=== PATIENT | female | born 1975 | race Caucasian/White ===

== ENCOUNTER 2016-05-17 18:43 | Emergency (ER) | payer MEDICAID ==
[2016-05-17] MEDS ORDERED: DIPHENHYDRAMINE HCL IV 50 MG/ML VIAL IVP ONE (19:17)
[2016-05-17] MEDS ORDERED: KETOROLAC 30 MG/ML VIAL IVP ONE (19:17)
[2016-05-17] MEDS ORDERED: METOCLOPRAMIDE HCL 10 MG/2 ML VIAL IVP ONE (19:17)
--- NOTE | 2016-05-17 19:21 | Emergency Department Record ---
History of Present Illness - General Stated Complaint: KIDD Time Seen by Provider: 05/17/16 19:16 Source: Patient Mode of Arrival: Ambulatory Limitations: No limitations - History of Present Illness Initial Comments: 40 yo female presents to ED with a CC of headache symptoms for the past 4-5 days. Patient reports that she has been taking her abortive therapy as directed , but has been unable to relieve her headache completely. Patient denies fevers , chills, or neck pain symptoms. Patient does report history of migraines, gastric bypass previously. MD Complaint: Headache Onset/Timin -: Days(s) Onset Description: Gradual Location: Diffuse Severity: Severe Quality: Throbbing, Similar to previous headaches Consistency: Constant Improves With: Medication Worsens With: None Treatments Prior to Arrival: Migraine medication - Related Data Home Medications Medication Instructions Recorded Confirmed Last Taken Naratriptan HCl [Amerge] 2.5 mg PO ASDIR PRN 09/03/14 05/17/16 1 Day Ago Cyanocobalamin (Vitamin B-12) 1 ml SQ WEEKLY 05/23/15 05/17/16 1 Day Ago [Vitamin B-12] Clonazepam [Klonopin] 1 mg PO BID 08/11/15 05/17/16 1 Day Ago Alprazolam [Xanax] 1 mg PO ASDIR tab 02/27/16 05/17/16 Unknown Dextroamphetamine/Amphetamine 20 mg PO DAILY tab 02/27/16 05/17/16 Unknown [Adderall] Nortriptyline HCl [Pamelor] 20 mg PO QHS 05/17/16 05/17/16 Unknown Trazodone HCl [Desyrel] 25 - 200 mg PO QHS 05/17/16 05/17/16 Unknown Previous Rx's Medication Instructions Recorded Butalb/Acetaminophen/Caffeine 1 each PO Q4H PRN #6 capsule 05/17/16 [Fioricet 50-300-40 mg Capsule] Allergies Allergy/AdvReac Type Severity Reaction Status Date / Time codeine Allergy NAUSEA AND Verified 05/17/16 19:37 VOMITING Latex, Natural Rubber Allergy RASH Verified 05/17/16 19:37 sumatriptan [From Imitrex] Allergy DIFFICULTY Verified 05/17/16 19:37 SWALLOWING sumatriptan succinate Allergy DIFFICULTY Verified 05/17/16 19:37 [From Imitrex] SWALLOWING tramadol Allergy HIVES Verified 05/17/16 19:37 Review of Systems Constitutional: Denies: Chills, Fever, Malaise, Night sweats Eyes: Reports: Photophobia. Denies: Eye discharge, Eye pain ENT: Denies: Congestion, Ear pain, Epistaxis Respiratory: Denies: Cough, Dyspnea Cardiovascular: Denies: Chest pain, Dyspnea on exertion Endocrine: Denies: Fatigue, Heat or cold intolerance Gastrointestinal: Denies: Abdominal pain, Nausea, Vomiting Genitourinary: Denies: Frequency, Hematuria, Incontinence, Retention Musculoskeletal: Denies: Arthralgia, Back pain, Gout, Joint swelling Skin: Denies: Bruising, Change in color Neurological: Reports: Headache. Denies: Abnormal gait, Confusion, Numbness, Tingling Psychiatric: Denies: Anxiety Hematological/Lymphatic: Denies: Anemia, Blood Clots Past Medical History - SOCIAL HISTORY Smoking Status: Former smoker Drug Use: None - RESPIRATORY Hx Respiratory Disorders: Yes Hx Asthma: Yes (hx) - CARDIOVASCULAR Hx Cardio Disorders: No - NEURO Hx Neuro Disorders: Yes Hx Headaches: Yes (for 11 years) Comment:: Increased CSF pressure - GI Hx GI Disorders: No - Hx Genitourinary Disorders: No - ENDOCRINE Hx Endocrine Disorders: No - MUSCULOSKELETAL Hx Musculoskeletal Disorders: No - PSYCH Hx Psych Problems: Yes Hx Anxiety: Yes Hx Depression: Yes - HEMATOLOGY/ONCOLOGY Hx Hematology/Oncology Disorders: Yes Hx Anemia: Yes Hx Blood Transfusions: No Comment:: also b12 deficient Family Medical History Family Hx Comment (NOT TO BE USED IN PLACE OF ITEMS BELOW): denies Physical Exam - General General Appearance: Alert, Oriented x3, Cooperative, Moderate distress Limitations: No limitations - Head Head exam: Atraumatic, Normocephalic, Normal inspection Head exam detail: negative: Abrasion, Contusion, Haas's sign, General tenderness, Hematoma, Laceration - Eye Eye exam: Normal appearance. negative: Conjunctival injection, Periorbital swelling, Periorbital tenderness, Scleral icterus - ENT Ear exam: negative: Auricular hematoma, Auricular trauma Nasal Exam: negative: Active bleeding, Discharge, Dried blood, Foreign body Mouth exam: negative: Drooling, Laceration, Muffled voice, Tongue elevation - Neck Neck exam: Normal inspection. negative: Meningismus, Tenderness - Respiratory Respiratory exam: Normal lung sounds bilaterally. negative: Respiratory distress, Rhonchi, Stridor, Wheezes - Cardiovascular Cardiovascular Exam: Regular rate, Normal rhythm, Normal heart sounds - GI/Abdominal GI/Abdominal exam: Soft. negative: Pulsatile mass, Rebound, Rigid, Tenderness - Rectal Rectal exam: Deferred - exam: Deferred - Extremities Extremities exam: Normal inspection. negative: Pedal edema, Tenderness - Back Back exam: Denies: CVA tenderness (R), CVA tenderness (L) - Neurological Neurological exam: Alert, Normal gait, Oriented X3 - Psychiatric Psychiatric exam: Normal affect, Normal mood - Skin Skin exam: Normal color. negative: Abrasion Type of lesion: negative: abrasion Course - Reevaluation(s) Reevaluation #1: 05/17/16 20:55 Patient reassessed, reports that her pain symptoms are greatly improved. Patient appears stable for discharge at this time. Disposition Disposition: Discharge Clinical Impression: Headache Qualifiers: Headache type: unspecified Headache chronicity pattern: acute headache Intractability: not intractable Qualified Code(s): R51 - Headache Disposition: Home, Self-Care Condition: (2) Stable Instructions: Acute Headache (ED) Additional Instructions: Return to ED if your symptoms worsen or if you have any concerns. Follow-up with your family doctor in 3-5 days as directed. Prescriptions: Butalb/Acetaminophen/Caffeine [Fioricet 50-300-40 mg Capsule] 1 each PO Q4H PRN #6 capsule PRN Reason: Headache Forms: Patient Portal Access Time of Disposition: 20:56
[2016-05-17] MEDS ORDERED: 0.9 % SODIUM CHLORIDE 1000ML 1,000 ML IV SCH (19:30)
== END 2016-05-17 21:20 | disposition home or self-care (01) ==
LOC: ER 18:43
DX: R51 Headache (principal); H53.149 Visual discomfort, unspecified
CPT/HCPCS: 99284 ×2; 96374; 96375; 96361; J1885; J1200; J2765; J7030

== ENCOUNTER 2016-05-19 19:17 | Emergency (ER) | payer MEDICAID ==
[2016-05-19] MEDS: 0.9 % SODIUM CHLORIDE 1,000 ML BAG IV ONE (20:39)
[2016-05-19] MEDS: METOCLOPRAMIDE HCL 10 MG/2 ML VIAL IVP ONE (20:39)
[2016-05-19] MEDS: KETOROLAC 30 MG/ML VIAL IVP ONE (20:40)
[2016-05-19] MEDS: DIPHENHYDRAMINE HCL IV 50 MG/ML VIAL IVP ONE (20:42)
[2016-05-19] MEDS: NALBUPHINE HCL 20 MG/ML AMPULE IM ONE (21:47)
--- NOTE | 2016-05-19 22:18 | Emergency Department Record ---
History of Present Illness - General Chief Complaint: Headache Migraine Stated Complaint: HEADACHE Time Seen by Provider: 05/19/16 20:04 Source: Patient Mode of Arrival: Ambulatory Limitations: No limitations - History of Present Illness Initial Comments: pt has had a migraine all week. pt states she saw dr ford and was better then got worse again.she is out of her fioricet. she states she has a hx of pseudotumor cerebri though she states dr forde didnt think so. she says this headache is worse and lasting longer then usual. it is in the same place as her migraines and does feel like her migraines. she has nausea MD Complaint: "Migraine" Onset/Timin -: Days(s) Onset Description: Gradual Location: Frontal Severity scale (1-10): 9 Quality: Full, Similar to previous headaches Consistency: Constant Improves With: Medication Worsens With: Noise Treatments Prior to Arrival: Migraine medication - Related Data Home Medications Medication Instructions Recorded Confirmed Last Taken Naratriptan HCl [Amerge] 2.5 mg PO ASDIR PRN 09/03/14 05/19/16 05/19/16 Cyanocobalamin (Vitamin B-12) 1 ml SQ WEEKLY 05/23/15 05/19/16 1 Day Ago [Vitamin B-12] Clonazepam [Klonopin] 1 mg PO BID 08/11/15 05/19/16 05/19/16 Alprazolam [Xanax] 1 mg PO ASDIR tab 02/27/16 05/19/16 Unknown Dextroamphetamine/Amphetamine 20 mg PO DAILY tab 02/27/16 05/19/16 Unknown [Adderall] Nortriptyline HCl [Pamelor] 20 mg PO QHS 05/17/16 05/19/16 05/18/16 Trazodone HCl [Desyrel] 25 - 200 mg PO QHS 05/17/16 05/19/16 05/18/16 Previous Rx's Medication Instructions Recorded Butalb/Acetaminophen/Caffeine 1 each PO ASDIR #10 capsule 05/19/16 [Fioricet 50-300-40 mg Capsule] Allergies Allergy/AdvReac Type Severity Reaction Status Date / Time codeine Allergy NAUSEA AND Verified 05/17/16 19:37 VOMITING Latex, Natural Rubber Allergy RASH Verified 05/17/16 19:37 sumatriptan [From Imitrex] Allergy DIFFICULTY Verified 05/17/16 19:37 SWALLOWING sumatriptan succinate Allergy DIFFICULTY Verified 05/17/16 19:37 [From Imitrex] SWALLOWING tramadol Allergy HIVES Verified 05/17/16 19:37 Travel Screening - Travel/Exposure Within Last 30 Days Have you traveled within the last 30 days?: No - Travel Symptoms Symptom Screening: None Review of Systems Reviewed: No additional complaints except as noted below Constitutional: Reports: As per HPI. Denies: Chills, Fever, Malaise, Night sweats, Weakness, Weight change Eyes: Reports: As per HPI. Denies: Eye discharge, Eye pain, Photophobia, Vision change ENT: Reports: As per HPI. Denies: Congestion, Dental pain, Ear pain, Epistaxis , Hearing loss, Throat pain Respiratory: Reports: As per HPI. Denies: Cough, Dyspnea, Hemoptysis, Stridor, Wheezes Cardiovascular: Reports: As per HPI. Denies: Arrhythmia, Chest pain, Dyspnea on exertion, Edema, Murmurs, Orthopnea, Palpitations, Paroxysmal nocturnal dyspnea, Rheumatic Fever, Syncope Endocrine: Reports: As per HPI. Denies: Fatigue, Heat or cold intolerance, Polydipsia, Polyuria Gastrointestinal: Reports: As per HPI. Denies: Abdominal pain, Constipation, Diarrhea, Hematemesis, Hematochezia, Melena, Nausea, Vomiting Genitourinary: Reports: As per HPI. Denies: Abnormal menses, Discharge, Dyspareunia, Dysuria, Frequency, Hematuria, Incontinence, Retention, Urgency Musculoskeletal: Reports: As per HPI. Denies: Arthralgia, Back pain, Gout, Joint swelling, Myalgia, Neck pain Skin: Reports: As per HPI. Denies: Bruising, Change in color, Change in hair/ nails, Lesions, Pruritus, Rash Neurological: Reports: As per HPI. Denies: Abnormal gait, Confusion, Headache, Numbness, Paresthesias, Seizure, Tingling, Tremors, Vertigo, Weakness Psychiatric: Reports: As per HPI. Denies: Anxiety, Auditory hallucinations, Depression, Homicidal thoughts, Suicidal thoughts, Visual hallucinations Hematological/Lymphatic: Reports: As per HPI. Denies: Anemia, Blood Clots, Easy bleeding, Easy bruising, Swollen glands Past Medical History - SOCIAL HISTORY Smoking Status: Former smoker - RESPIRATORY Hx Respiratory Disorders: Yes Hx Asthma: Yes (hx) - CARDIOVASCULAR Hx Cardio Disorders: No - NEURO Hx Neuro Disorders: Yes Hx Headaches: Yes (for 11 years) Comment:: Increased CSF pressure - GI Hx GI Disorders: No - Hx Genitourinary Disorders: No - ENDOCRINE Hx Endocrine Disorders: No - MUSCULOSKELETAL Hx Musculoskeletal Disorders: No - PSYCH Hx Psych Problems: Yes Hx Anxiety: Yes Hx Depression: Yes - HEMATOLOGY/ONCOLOGY Hx Hematology/Oncology Disorders: Yes Hx Anemia: Yes Hx Blood Transfusions: No Comment:: also b12 deficient Family Medical History Any Significant Family History?: Yes Family Hx Comment (NOT TO BE USED IN PLACE OF ITEMS BELOW): mom w/thyroid issues ; dad w/headaches *Cancer Comment: "mom's side" w/breast CA Physical Exam - General General Appearance: Alert, Oriented x3, Cooperative, Mild distress - Head Head exam: Normal inspection - Eye Eye exam: Normal appearance, PERRL, EOMI Pupils: Normal accommodation - ENT ENT exam: Normal exam, Mucous membranes moist, Normal external ear exam, Normal orophraynx Ear exam: Normal external inspection. negative: External canal tenderness Nasal Exam: Normal inspection. negative: Discharge, Sinus tenderness Mouth exam: Normal external inspection, Tongue normal Teeth exam: Normal inspection. negative: Dental caries Throat exam: Normal inspection. negative: Tonsillar erythema, Tonsillar exudate - Neck Neck exam: Normal inspection, Full ROM. negative: Tenderness - Respiratory Respiratory exam: Normal lung sounds bilaterally. negative: Respiratory distress - Cardiovascular Cardiovascular Exam: Regular rate, Normal rhythm, Normal heart sounds - GI/Abdominal GI/Abdominal exam: Soft, Normal bowel sounds. negative: Tenderness - Rectal Rectal exam: Deferred - exam: Deferred - Extremities Extremities exam: Normal inspection, Full ROM, Normal capillary refill. negative: Tenderness - Back Back exam: Reports: Normal inspection, Full ROM. Denies: Muscle spasm, Rash noted, Tenderness - Neurological Neurological exam: Alert, CN II-XII intact, Normal gait, Oriented X3 - Psychiatric Psychiatric exam: Normal affect, Normal mood - Skin Skin exam: Dry, Intact, Normal color, Warm Course Vital Signs 05/19/16 05/19/16 19:37 21:24 Temperature 98.5 F Pulse Rate [ 94 H 78 Pulse Ox Probe] Respiratory 20 16 Rate Blood Pressure 165/101 128/73 [Left Arm] Pulse Ox 100 100 - Reevaluation(s) Reevaluation #1: 05/19/16 22:[address] Disposition Disposition: Discharge Clinical Impression: Migraine Qualifiers: Migraine type: unspecified Status migrainosus presence: with status migrainosus Intractability: intractable Qualified Code(s): G43.911 - Migraine, unspecified, intractable, with status migrainosus Instructions: Migraine Headache (ED) Additional Instructions: follow up with neurologist. return sooner if worse. rest Prescriptions: Butalb/Acetaminophen/Caffeine [Fioricet 50-300-40 mg Capsule] 1 each PO ASDIR # 10 capsule Forms: Patient Portal Access
== END 2016-05-19 22:44 | disposition home or self-care (01) ==
LOC: ER 19:17
DX: G43.911 Migraine, unspecified, intractable, with status migrainosus (principal); R11.0 Nausea
CPT/HCPCS: 99284 ×2; 96374; 96372; 96375; 70450; J1885; J2300; J1200; J2765; J7030

== ENCOUNTER 2016-06-09 16:36 | Emergency (ER) | payer MEDICAID ==
--- NOTE | 2016-06-09 17:26 | Emergency Department Record ---
History of Present Illness - General Chief Complaint: Headache Migraine Stated Complaint: HEADACHE Time Seen by Provider: 06/09/16 17:13 Mode of Arrival: Ambulatory - History of Present Illness Initial Comments: headache started today and she had a lower jaw tooth root canal done which feels better today and she used norco and she said the headache got worse. Complaint: Headache Onset/Timin -: Days(s) Onset Description: Gradual Location: Frontal Severity scale (1-10): 6 Quality: Aching, Similar to previous headaches Consistency: Constant Improves With: Nothing Worsens With: None Associated Symptoms: Nausea, Photophobia, Sensitivity to sound Treatments Prior to Arrival: None - Related Data Home Medications Medication Instructions Recorded Confirmed Last Taken Naratriptan HCl [Amerge] 2.5 mg PO ASDIR PRN 09/03/14 06/09/16 05/19/16 Cyanocobalamin (Vitamin B-12) 1 ml SQ WEEKLY 05/23/15 06/09/16 1 Day Ago [Vitamin B-12] Clonazepam [Klonopin] 1 mg PO BID 08/11/15 06/09/16 05/19/16 Alprazolam [Xanax] 1 mg PO ASDIR tab 02/27/16 06/09/16 Unknown Dextroamphetamine/Amphetamine 20 mg PO DAILY tab 02/27/16 06/09/16 Unknown [Adderall] Nortriptyline HCl [Pamelor] 20 mg PO QHS 05/17/16 06/09/16 05/18/16 Trazodone HCl [Desyrel] 25 - 200 mg PO QHS 05/17/16 06/09/16 05/18/16 Hydrocodone/Acetaminophen 1 tab PO Q6H 06/09/16 06/09/16 Unknown [Hydrocodon-Acetaminophn 10-325] Previous Rx's Medication Instructions Recorded Butalb/Acetaminophen/Caffeine 1 each PO ASDIR #10 capsule 05/19/16 [Fioricet 50-300-40 mg Capsule] Butalb/Acetaminophen/Caffeine 1 each PO Q4H #14 tablet 06/09/16 [Fioricet] Allergies Allergy/AdvReac Type Severity Reaction Status Date / Time codeine Allergy NAUSEA AND Verified 05/17/16 19:37 VOMITING Latex, Natural Rubber Allergy RASH Verified 05/17/16 19:37 sumatriptan [From Imitrex] Allergy DIFFICULTY Verified 05/17/16 19:37 SWALLOWING sumatriptan succinate Allergy DIFFICULTY Verified 05/17/16 19:37 [From Imitrex] SWALLOWING tramadol Allergy HIVES Verified 05/17/16 19:37 Travel Screening - Travel/Exposure Within Last 30 Days Have you traveled within the last 30 days?: No Review of Systems Reviewed: No additional complaints except as noted below Constitutional: Reports: As per HPI. Denies: Chills, Fever, Malaise, Night sweats, Weakness, Weight change Eyes: Reports: As per HPI. Denies: Eye discharge, Eye pain, Photophobia, Vision change ENT: Reports: As per HPI. Denies: Congestion, Dental pain, Ear pain, Epistaxis , Hearing loss, Throat pain Respiratory: Reports: As per HPI. Denies: Cough, Dyspnea, Hemoptysis, Stridor, Wheezes Cardiovascular: Reports: As per HPI. Denies: Arrhythmia, Chest pain, Dyspnea on exertion, Edema, Murmurs, Orthopnea, Palpitations, Paroxysmal nocturnal dyspnea, Rheumatic Fever, Syncope Endocrine: Reports: As per HPI. Denies: Fatigue, Heat or cold intolerance, Polydipsia, Polyuria Gastrointestinal: Reports: As per HPI. Denies: Abdominal pain, Constipation, Diarrhea, Hematemesis, Hematochezia, Melena, Nausea, Vomiting Genitourinary: Reports: As per HPI. Denies: Abnormal menses, Discharge, Dyspareunia, Dysuria, Frequency, Hematuria, Incontinence, Retention, Urgency Musculoskeletal: Reports: As per HPI. Denies: Arthralgia, Back pain, Gout, Joint swelling, Myalgia, Neck pain Skin: Reports: As per HPI. Denies: Bruising, Change in color, Change in hair/ nails, Lesions, Pruritus, Rash Neurological: Reports: As per HPI, Headache. Denies: Abnormal gait, Confusion, Numbness, Paresthesias, Seizure, Tingling, Tremors, Vertigo, Weakness Psychiatric: Reports: As per HPI. Denies: Anxiety, Auditory hallucinations, Depression, Homicidal thoughts, Suicidal thoughts, Visual hallucinations Hematological/Lymphatic: Reports: As per HPI. Denies: Anemia, Blood Clots, Easy bleeding, Easy bruising, Swollen glands Past Medical History - SOCIAL HISTORY Smoking Status: Former smoker - RESPIRATORY Hx Respiratory Disorders: Yes Hx Asthma: Yes (hx) - CARDIOVASCULAR Hx Cardio Disorders: No - NEURO Hx Neuro Disorders: Yes Hx Headaches: Yes (for 11 years) Comment:: Increased CSF pressure - GI Hx GI Disorders: No - Hx Genitourinary Disorders: No - ENDOCRINE Hx Endocrine Disorders: No - MUSCULOSKELETAL Hx Musculoskeletal Disorders: No - PSYCH Hx Psych Problems: Yes Hx Anxiety: Yes Hx Depression: Yes - HEMATOLOGY/ONCOLOGY Hx Hematology/Oncology Disorders: Yes Hx Anemia: Yes Hx Blood Transfusions: No Comment:: also b12 deficient Family Medical History Any Significant Family History?: Yes Family Hx Comment (NOT TO BE USED IN PLACE OF ITEMS BELOW): mom w/thyroid issues ; dad w/headaches *Cancer Comment: "mom's side" w/breast CA Physical Exam - General General Appearance: Alert, Oriented x3, Cooperative, No acute distress - Head Head exam: Normal inspection - Eye Eye exam: Normal appearance, PERRL Pupils: Normal accommodation - ENT ENT exam: Normal exam, Mucous membranes moist, Normal external ear exam, Normal orophraynx, TM's normal bilaterally Ear exam: Normal external inspection. negative: External canal tenderness Nasal Exam: Normal inspection. negative: Discharge, Sinus tenderness Mouth exam: Normal external inspection, Tongue normal Teeth exam: Normal inspection. negative: Dental caries Throat exam: Normal inspection. negative: Tonsillar erythema, Tonsillar exudate - Neck Neck exam: Normal inspection, Full ROM. negative: Tenderness - Respiratory Respiratory exam: Normal lung sounds bilaterally. negative: Respiratory distress - Cardiovascular Cardiovascular Exam: Regular rate, Normal rhythm, Normal heart sounds - GI/Abdominal GI/Abdominal exam: Soft, Normal bowel sounds. negative: Tenderness - Rectal Rectal exam: Deferred - exam: Deferred - Extremities Extremities exam: Normal inspection, Full ROM, Normal capillary refill. negative: Tenderness - Back Back exam: Reports: Normal inspection, Full ROM. Denies: Muscle spasm, Rash noted, Tenderness - Neurological Neurological exam: Alert, Normal gait, Oriented X3, Reflexes normal - Psychiatric Psychiatric exam: Normal affect, Normal mood - Skin Skin exam: Dry, Intact, Normal color, Warm Course Vital Signs 06/09/16 16:53 Temperature 98.6 F Pulse Rate 128 H Respiratory 22 Rate Blood Pressure 149/98 Pulse Ox 98 feeling better Medical Decision Making - Lab Data Result diagrams: 06/09/16 17:50 06/09/16 17:50 Disposition Clinical Impression: Migraine Qualifiers: Migraine type: unspecified Status migrainosus presence: with status migrainosus Intractability: intractable Qualified Code(s): G43.911 - Migraine, unspecified, intractable, with status migrainosus Disposition: Home, Self-Care Condition: (1) Good Instructions: Migraine Headache (ED) Additional Instructions: follow up with family Prescriptions: Butalb/Acetaminophen/Caffeine [Fioricet] 1 each PO Q4H #14 tablet Forms: Patient Portal Access Time of Disposition: 18:38
[2016-06-09] MEDS: PROMETHAZINE HCL 25 MG in 0.9 % SODIUM CHLORIDE 100ML 50 ML IVP ONE (17:51)
[2016-06-09] MEDS: KETOROLAC 30 MG/ML VIAL IVP ONE (17:51)
[2016-06-09] MEDS: DIPHENHYDRAMINE HCL IV 50 MG/ML VIAL IVP ONE (17:51)
[2016-06-09] MEDS: 0.9 % SODIUM CHLORIDE 1,000 ML BAG IV ONE (17:51)
[2016-06-09 18:09] LABS: BASO % 0.5 % (0-6); EOS % 9.3 % (0-6); GRAN % 72.5 % (47-80); HEMATOCRIT 37.6 % (35.0-47.0); LYMPH % 12.9 % (16-45); MEAN CELL VOLUME 97.2 fl (81-97); MEAN CORPUSCULAR HGB CONC 31.9 g/dl (32-36); MEAN PLATELET VOLUME 9.8 fl (7.4-10.4); MONO % 4.8 % (0-9); PLATELET COUNT 223 K/uL (130-400); RED BLOOD COUNT 3.87 M/uL (3.80-5.40); RED CELL DISTRIBUTION WIDTH 12.6 % (11.5-14.5); WHITE BLOOD COUNT W/O DIFF 5.7 K/uL (4.2-12.2)
[2016-06-09 18:22] LABS: ANION GAP 7.4 (7-16); BLOOD UREA NITROGEN 12 mg/dL (7-17); CARBON DIOXIDE 26.6 mmol/L (22-30); CREATININE 0.5 mg/dL (0.52-1.04); EST GLOMERULAR FILTRATION RATE > 60 ml/min; GLUCOSE,RANDOM 103 mg/dL (70-110)
[2016-06-09] MEDS: NALBUPHINE HCL 20 MG/ML AMPULE IVP ONE (18:28)
== END 2016-06-09 19:10 | disposition home or self-care (01) ==
LOC: ER 16:36
DX: G43.911 Migraine, unspecified, intractable, with status migrainosus (principal); R11.0 Nausea
CPT/HCPCS: 80048; 85025; 96374; 96375; 99284; J1200; J1885; J2550; J7030

== ENCOUNTER 2016-08-05 21:56 | Emergency (ER) | payer MEDICAID ==
--- NOTE | 2016-08-05 22:32 | Emergency Department Record ---
History of Present Illness - General Chief Complaint: Headache Migraine Stated Complaint: MIGRAINE Time Seen by Provider: 08/05/16 22:27 Source: Patient Mode of Arrival: Ambulatory Limitations: No limitations - History of Present Illness Initial Comments: 40 yo female presents to ED with a CC ofa "migraine headache" for the past 3 days that has persisted despite abortive therapy from her Neurologist Dr. Evans. Patient reports that she has been taking Eldridge and sumatriptan for her symptoms without improvement in her symptoms. Patient reports nausea without vomiting and photophobia. Patient denies fevers, chills, or neck stiffness symptoms. MD Complaint: Headache Onset/Timin -: Days(s) Onset Description: Gradual Location: Frontal, Other Severity: Severe Severity scale (1-10): 8 Quality: Full, Throbbing, Similar to previous headaches Consistency: Constant Improves With: Medication Worsens With: Exertion/activity, Light, Noise Associated Symptoms: Sensitivity to sound Treatment Prior to Arrival Comment:: migraine medication 08/04/16 - Related Data Home Medications Medication Instructions Recorded Confirmed Last Taken Naratriptan HCl [Amerge] 2.5 mg PO ASDIR PRN 09/03/14 08/05/16 08/04/16 Cyanocobalamin (Vitamin B-12) 1 ml SQ WEEKLY 05/23/15 08/05/16 1 Day Ago [Vitamin B-12] ~09/02/15 Clonazepam [Klonopin] 1 mg PO BID 08/11/15 08/05/16 05/19/16 Alprazolam [Xanax] 1 mg PO ASDIR tab 02/27/16 08/05/16 Unknown Dextroamphetamine/Amphetamine 20 mg PO DAILY tab 02/27/16 08/05/16 Unknown [Adderall] Nortriptyline HCl [Pamelor] 20 mg PO QHS 05/17/16 08/05/16 05/18/16 Trazodone HCl [Desyrel] 25 - 200 mg PO QHS 05/17/16 08/05/16 05/18/16 Hydrocodone/Acetaminophen 1 tab PO Q6H 06/09/16 08/05/16 Unknown [Hydrocodon-Acetaminophn 10-325] Butalb/Acetaminophen/Caffeine 1 each PO ASDIR PRN 08/05/16 08/05/16 08/02/16 [Fioricet 50-300-40 mg Capsule] Verapamil HCl 80 mg PO DAILY 08/05/16 08/05/16 08/05/16 Allergies Allergy/AdvReac Type Severity Reaction Status Date / Time codeine Allergy NAUSEA AND Verified 05/17/16 19:37 VOMITING Latex, Natural Rubber Allergy RASH Verified 05/17/16 19:37 sumatriptan [From Imitrex] Allergy DIFFICULTY Verified 05/17/16 19:37 SWALLOWING sumatriptan succinate Allergy DIFFICULTY Verified 05/17/16 19:37 [From Imitrex] SWALLOWING tramadol Allergy HIVES Verified 05/17/16 19:37 Travel Screening - Travel/Exposure Within Last 30 Days Have you traveled within the last 30 days?: No - Travel Symptoms Symptom Screening: Headache Review of Systems Constitutional: Denies: Chills, Fever, Malaise, Night sweats Eyes: Reports: Photophobia. Denies: Eye discharge, Eye pain ENT: Denies: Congestion, Ear pain, Epistaxis Respiratory: Denies: Cough, Dyspnea Cardiovascular: Denies: Chest pain, Dyspnea on exertion Endocrine: Denies: Fatigue, Heat or cold intolerance Gastrointestinal: Reports: Nausea. Denies: Abdominal pain, Vomiting Genitourinary: Denies: Incontinence, Retention Musculoskeletal: Denies: Arthralgia, Back pain Skin: Denies: Bruising, Change in color Neurological: Reports: Headache. Denies: Abnormal gait, Confusion, Seizure Psychiatric: Denies: Anxiety Hematological/Lymphatic: Denies: Anemia, Blood Clots Past Medical History - SOCIAL HISTORY Smoking Status: Former smoker Alcohol Use: None Drug Use: None - RESPIRATORY Hx Respiratory Disorders: Yes Hx Asthma: Yes (hx) - CARDIOVASCULAR Hx Cardio Disorders: No - NEURO Hx Neuro Disorders: Yes Hx Headaches: Yes (for 11 years) Comment:: Increased CSF pressure - GI Hx GI Disorders: No - Hx Genitourinary Disorders: No - ENDOCRINE Hx Endocrine Disorders: No - MUSCULOSKELETAL Hx Musculoskeletal Disorders: No - PSYCH Hx Psych Problems: Yes Hx Anxiety: Yes Hx Depression: Yes - HEMATOLOGY/ONCOLOGY Hx Hematology/Oncology Disorders: Yes Hx Anemia: Yes Hx Blood Transfusions: No Comment:: also b12 deficient Family Medical History Any Significant Family History?: Yes Family Hx Comment (NOT TO BE USED IN PLACE OF ITEMS BELOW): mom w/thyroid issues ; dad w/headaches *Cancer Comment: "mom's side" w/breast CA Physical Exam - General General Appearance: Alert, Oriented x3, Cooperative, Moderate distress Limitations: No limitations - Head Head exam: Atraumatic, Normocephalic, Normal inspection Head exam detail: negative: Abrasion, Contusion, Haas's sign, General tenderness, Hematoma, Laceration - Eye Eye exam: Normal appearance. negative: Conjunctival injection, Periorbital swelling, Periorbital tenderness, Scleral icterus - ENT Ear exam: negative: Auricular hematoma, Auricular trauma Nasal Exam: negative: Active bleeding, Discharge, Dried blood, Foreign body Mouth exam: negative: Drooling, Laceration, Tongue elevation - Neck Neck exam: Normal inspection. negative: Meningismus, Tenderness - Respiratory Respiratory exam: Normal lung sounds bilaterally. negative: Rales, Respiratory distress, Rhonchi, Stridor - Cardiovascular Cardiovascular Exam: Regular rate, Normal rhythm, Normal heart sounds - GI/Abdominal GI/Abdominal exam: Soft. negative: Rebound, Rigid, Tenderness - Rectal Rectal exam: Deferred - exam: Deferred - Extremities Extremities exam: Normal inspection. negative: Pedal edema, Tenderness - Back Back exam: Denies: CVA tenderness (R), CVA tenderness (L) - Neurological Neurological exam: Alert, Normal gait, Oriented X3 - Psychiatric Psychiatric exam: Normal affect, Normal mood - Skin Skin exam: Normal color. negative: Abrasion Type of lesion: negative: abrasion Course Vital Signs 08/05/16 22:18 Temperature 98.1 F Pulse Rate [ 88 Pulse Ox Probe] Respiratory 18 Rate Blood Pressure 129/89 [Left Arm] Pulse Ox 97 - Reevaluation(s) Reevaluation #1: 08/06/16 00:15 Patient reports that her headache symptoms are improved, and the patient appears stable for discharge at this time. Disposition Disposition: Discharge Clinical Impression: Headache Qualifiers: Headache type: unspecified Headache chronicity pattern: acute headache Intractability: not intractable Qualified Code(s): R51 - Headache Disposition: Home, Self-Care Condition: (2) Stable Instructions: Acute Headache (ED) Additional Instructions: Return to ED if your symptoms worsen or if you have any concerns. Follow-up with Dr. Evans in 3-5 days as directed. Forms: Patient Portal Access Time of Disposition: 22:32
[2016-08-05] MEDS: DIAZEPAM 5 MG/1 ML TUBX IVP ONE (22:54)
[2016-08-05] MEDS: 0.9 % SODIUM CHLORIDE 1000ML 1,000 ML IV SCH (22:54)
[2016-08-05] MEDS: METOCLOPRAMIDE HCL 10 MG/2 ML VIAL IVP ONE (22:55)
[2016-08-05] MEDS: DIPHENHYDRAMINE HCL IV 50 MG/ML VIAL IVP ONE (22:55)
[2016-08-06] MEDS: NALBUPHINE HCL 20 MG/ML AMPULE IM ONE (00:08)
== END 2016-08-06 00:22 | disposition home or self-care (01) ==
LOC: ER 21:56
DX: R51 Headache (principal); R11.2 Nausea with vomiting, unspecified; H53.149 Visual discomfort, unspecified
CPT/HCPCS: 99284 ×2; 96374; 96372; 96375; 96361; J2300; J1200; J2765; J3360; J7030

== ENCOUNTER 2016-09-02 10:06 | Emergency (ER) | payer MEDICAID ==
[2016-09-02] MEDS ORDERED: 0.9 % SODIUM CHLORIDE 1,000 ML BAG IV ONE (10:33)
[2016-09-02] MEDS ORDERED: ONDANSETRON HCL IV 4 MG/2 ML VIAL IVP ONE (10:47)
--- NOTE | 2016-09-02 10:53 | Emergency Department Record ---
History of Present Illness - General Chief complaint: Weakness Stated complaint: SLURRED SPEECH Time Seen by Provider: 09/02/16 10:24 Source: Patient, Family Mode of Arrival: Wheelchair Limitations: No limitations - History of Present Illness Initial comments: pts states pt woke up slurring words and having r sided weakness. last time she was seen with no symptoms was 10 hrs ago. MD Complaint: Difficulty walking, Focal weakness, Tingling Onset/Timin -: Days(s) Location: Generalized Severity: Moderate Consistency: Constant Improves with: None Worsens with: None Associated Symptoms: Denies other symptoms - [place] Coma Scale Eye Response: (4) Open spontaneously Motor Response: (6) Obeys commands Verbal Response: (5) Oriented Anu Total: 15 - Symptoms of Stroke Symptoms of stroke: Slurred Speech, Unsteady When Walking - Related Data Home Medications Medication Instructions Recorded Confirmed Last Taken Naratriptan HCl [Amerge] 2.5 mg PO ASDIR PRN 09/03/14 09/02/16 09/01/16 Cyanocobalamin (Vitamin B-12) 1 ml SQ WEEKLY 05/23/15 09/02/16 09/01/16 [Vitamin B-12] Clonazepam [Klonopin] 1 mg PO BID 08/11/15 09/02/16 09/01/16 Alprazolam [Xanax] 1 mg PO ASDIR tab 02/27/16 09/02/16 09/01/16 Dextroamphetamine/Amphetamine 20 mg PO DAILY tab 02/27/16 09/02/16 09/01/16 [Adderall] Trazodone HCl [Desyrel] 25 - 200 mg PO QHS 05/17/16 09/02/16 09/01/16 Hydrocodone/Acetaminophen 1 tab PO Q6H 06/09/16 09/02/16 09/01/16 [Hydrocodon-Acetaminophn 10-325] Butalb/Acetaminophen/Caffeine 1 each PO ASDIR PRN 08/05/16 09/02/16 09/01/16 [Fioricet 50-300-40 mg Capsule] Verapamil HCl 80 mg PO DAILY 08/05/16 09/02/16 09/01/16 Allergies Allergy/AdvReac Type Severity Reaction Status Date / Time codeine Allergy NAUSEA AND Verified 09/02/16 10:10 VOMITING Latex, Natural Rubber Allergy RASH Verified 09/02/16 10:10 sumatriptan [From Imitrex] Allergy DIFFICULTY Verified 09/02/16 10:10 SWALLOWING sumatriptan succinate Allergy DIFFICULTY Verified 09/02/16 10:10 [From Imitrex] SWALLOWING tramadol Allergy HIVES Verified 09/02/16 10:10 Travel Screening - Travel/Exposure Within Last 30 Days Have you traveled within the last 30 days?: No - Travel/Exposure Within Last Year Have you traveled outside the [place] in the last year?: No - Additonal Travel Details Have you been exposed to anyone with a communicable illness?: No Review of Systems Reviewed: No additional complaints except as noted below Constitutional: Reports: As per HPI. Denies: Chills, Fever, Malaise, Night sweats, Weakness, Weight change Eyes: Reports: As per HPI. Denies: Eye discharge, Eye pain, Photophobia, Vision change ENT: Reports: As per HPI. Denies: Congestion, Dental pain, Ear pain, Epistaxis , Hearing loss, Throat pain Respiratory: Reports: As per HPI. Denies: Cough, Dyspnea, Hemoptysis, Stridor, Wheezes Cardiovascular: Reports: As per HPI. Denies: Arrhythmia, Chest pain, Dyspnea on exertion, Edema, Murmurs, Orthopnea, Palpitations, Paroxysmal nocturnal dyspnea, Rheumatic Fever, Syncope Endocrine: Reports: As per HPI. Denies: Fatigue, Heat or cold intolerance, Polydipsia, Polyuria Gastrointestinal: Reports: As per HPI. Denies: Abdominal pain, Constipation, Diarrhea, Hematemesis, Hematochezia, Melena, Nausea, Vomiting Genitourinary: Reports: As per HPI. Denies: Abnormal menses, Discharge, Dyspareunia, Dysuria, Frequency, Hematuria, Incontinence, Retention, Urgency Musculoskeletal: Reports: As per HPI. Denies: Arthralgia, Back pain, Gout, Joint swelling, Myalgia, Neck pain Skin: Reports: As per HPI. Denies: Bruising, Change in color, Change in hair/ nails, Lesions, Pruritus, Rash Neurological: Reports: As per HPI. Denies: Abnormal gait, Confusion, Headache, Numbness, Paresthesias, Seizure, Tingling, Tremors, Vertigo, Weakness Psychiatric: Reports: As per HPI. Denies: Anxiety, Auditory hallucinations, Depression, Homicidal thoughts, Suicidal thoughts, Visual hallucinations Hematological/Lymphatic: Reports: As per HPI. Denies: Anemia, Blood Clots, Easy bleeding, Easy bruising, Swollen glands Past Medical History - SOCIAL HISTORY Smoking Status: Former smoker - RESPIRATORY Hx Respiratory Disorders: Yes Hx Asthma: Yes (hx) - CARDIOVASCULAR Hx Cardio Disorders: No - NEURO Hx Neuro Disorders: Yes Hx Headaches: Yes (for 11 years) Comment:: Increased CSF pressure - GI Hx GI Disorders: No - Hx Genitourinary Disorders: No - ENDOCRINE Hx Endocrine Disorders: No - MUSCULOSKELETAL Hx Musculoskeletal Disorders: No - PSYCH Hx Psych Problems: Yes Hx Anxiety: Yes Hx Depression: Yes - HEMATOLOGY/ONCOLOGY Hx Hematology/Oncology Disorders: Yes Hx Anemia: Yes Hx Blood Transfusions: No Comment:: also b12 deficient Family Medical History Any Significant Family History?: Yes Family Hx Comment (NOT TO BE USED IN PLACE OF ITEMS BELOW): mom w/thyroid issues ; dad w/headaches Hx Cancer: Mother *Cancer Comment: "mom's side" w/breast CA Physical Exam - General General Appearance: Alert, Oriented x3, Cooperative, Mild distress - Head Head exam: Normal inspection - Eye Eye exam: Normal appearance, PERRL, EOMI Pupils: Normal accommodation - ENT ENT exam: Normal exam, Mucous membranes moist, Normal external ear exam, Normal orophraynx Ear exam: Normal external inspection. negative: External canal tenderness Nasal Exam: Normal inspection. negative: Discharge, Sinus tenderness Mouth exam: Normal external inspection, Tongue normal Teeth exam: Normal inspection. negative: Dental caries Throat exam: Normal inspection. negative: Tonsillar erythema, Tonsillar exudate - Neck Neck exam: Normal inspection, Full ROM. negative: Tenderness - Respiratory Respiratory exam: Normal lung sounds bilaterally. negative: Respiratory distress - Cardiovascular Cardiovascular Exam: Regular rate, Normal rhythm, Normal heart sounds - GI/Abdominal GI/Abdominal exam: Soft, Normal bowel sounds. negative: Tenderness - Rectal Rectal exam: Deferred - exam: Deferred - Extremities Extremities exam: Normal inspection, Full ROM, Normal capillary refill. negative: Tenderness - Back Back exam: Reports: Normal inspection, Full ROM. Denies: Muscle spasm, Rash noted, Tenderness - Neurological Neurological exam: Alert, CN II-XII intact, Oriented X3, Other (inconsistant exam w sporadic degrees of weakness on both sides and intermittant slurring of varying degrees). negative: Normal gait - Psychiatric Psychiatric exam: Normal affect, Normal mood - Skin Skin exam: Dry, Intact, Normal color, Warm Course Vital Signs 09/02/16 10:13 Temperature 97.7 F Pulse Rate 74 Respiratory 16 Rate Blood Pressure 112/70 Pulse Ox 98 - Reevaluation(s) Reevaluation #1: 09/02/16 14:04 pts symptoms resolved and she developed a migraine. i discussed pt w dr gamez, pts neurologist who wgreed that it was an atypical migraine and wanted her to stop one of her meds Medical Decision Making - Lab Data Result diagrams: 09/02/16 10:45 09/02/16 10:45 Disposition Disposition: Discharge Clinical Impression: Atypical migraine Disposition: Home, Self-Care Condition: (1) Good Instructions: Migraine Headache (ED) Additional Instructions: follow up with dr gamez this week. return sooner if worse. stop amerge Forms: Patient Portal Access Quality - Quality Measures Quality Measures: N/A - Blood Pressure Screening Blood Pressure Classification: Normal BP Reading Systolic Measurement: 112 Diastolic Measurement: 70 Screening for High Blood Pressure: < Normal BP, F/U Not Required > [G8783] Normal BP Follow-up Interventions: No follow-up required
[2016-09-02 11:06] LABS: EOS % 8.4 % (0-6); GRAN % 40.7 % (47-80); HEMATOCRIT 35.3 % (35.0-47.0); HEMOGLOBIN 11.4 gm/dl (11.6-16.0); LYMPH % 43.2 % (16-45); MEAN CORPUSCULAR HEMOGLOBIN 31.3 pg (27-33); MEAN CORPUSCULAR HGB CONC 32.3 g/dl (32-36); MEAN PLATELET VOLUME 9.7 fl (7.4-10.4); MONO % 6.7 % (0-9); PLATELET COUNT 251 K/uL (130-400); RED BLOOD COUNT 3.64 M/uL (3.80-5.40); RED CELL DISTRIBUTION WIDTH 12.5 % (11.5-14.5); WHITE BLOOD COUNT W/O DIFF 5.1 K/uL (4.2-12.2)
[2016-09-02 11:38] LABS: ANION GAP 6.8 (7-16); BLOOD UREA NITROGEN 14 mg/dL (7-17); CARBON DIOXIDE 28.2 mmol/L (22-30); CREATININE 0.6 mg/dL (0.52-1.04); EST GLOMERULAR FILTRATION RATE > 60 ml/min; GLUCOSE,RANDOM 83 mg/dL (70-110)
[2016-09-02 12:03] LABS: AMPHETAMINE SCREEN URINE NOT DETECTED; BARBITURATE SCREEN URINE DETECTED; BENZODIAZEPINE SCREEN URINE DETECTED; COCAINE SCREEN URINE NOT DETECTED; METHADONE SCREEN URINE NOT DETECTED; OPIATE SCREEN URINE NOT DETECTED; THC SCREEN URINE NOT DETECTED; TRICYCLIC ANTIDEPRESSANT SCRN NOT DETECTED
[2016-09-02 12:04] LABS: METHAMPHETAMINE SCREEN NOT DETECTED; OXYCODONE SCREEN URINE NOT DETECTED; PHENCYCLIDINE SCREEN URINE NOT DETECTED; PROPOXYPHENE SCREEN URINE NOT DETECTED
[2016-09-02 12:18] LABS: URINE APPEARANCE CLEAR; URINE BILIRUBIN NEGATIVE (NEGATIVE); URINE BLOOD NEGATIVE (NEGATIVE); URINE COLOR YELLOW; URINE GLUCOSE (UA) NEGATIVE (NEGATIVE); URINE KETONE NEGATIVE (NEGATIVE); URINE LEUKOCYTE ESTERASE NEGATIVE (NEGATIVE); URINE NITRITE NEGATIVE (NEGATIVE); URINE PROTEIN NEGATIVE (NEGATIVE); URINE UROBILINOGEN 0.2 E.U./dL (0.20 - 1.00)
--- NOTE | 2016-09-02 12:48 | CT SCAN REPORT ---
EXAM: CT OF THE BRAIN HISTORY: RIGHT SIDED WEAKNESS. TECHNIQUE: CT of the brain without contrast was obtained. Comparison: Prior CT of the brain from 05/19/16. FINDINGS: The globes are intact. The paranasal sinuses and mastoid air cells are unremarkable. No displaced or depressed skull fracture. There is no intra or extraaxial hemorrhage. CT is limited for the evaluation of acute infarct. No CT evidence for large or territorial acute infarct. No mass, mass effect, or midline shift. IMPRESSION: NEGATIVE CT OF THE BRAIN. JOB NUMBER: [id number] MTDD
[2016-09-02] MEDS ORDERED: NALBUPHINE HCL 20 MG/ML AMPULE IM ONE (13:09)
== END 2016-09-02 14:20 | disposition home or self-care (01) ==
LOC: ER 10:06
DX: G43.809 Other migraine, not intractable, without status migrainosus (principal); R47.81 Slurred speech; R53.1 Weakness; R42 Dizziness and giddiness
CPT/HCPCS: 99284 ×2; 96374; 96372; 85025; 80048; 81003; 80305; 70450; 93005; 93010; G0480; J2405; J2300; 80320; J7030

== ENCOUNTER 2016-11-06 05:49 | Emergency (ER) | payer MEDICAID ==
[2016-11-06] MEDS ORDERED: PROMETHAZINE HCL 25 MG/ML VIAL IM ONE (06:12)
[2016-11-06] MEDS ORDERED: NALBUPHINE HCL 20 MG/ML AMPULE IM ONE (06:12)
--- NOTE | 2016-11-06 06:19 | Emergency Department Record ---
History of Present Illness - General Chief Complaint: Headache Migraine Stated Complaint: HEADACHE Time Seen by Provider: 11/06/16 06:03 Source: Patient Mode of Arrival: Ambulatory Limitations: No limitations - History of Present Illness Initial Comments: 40 yo female presents to ED with a CC of a "migraine headache" that began 3 days ago. Patient reports that her symptoms are similar to previous headaches, rates her pain symptoms are 9/10 at this time. Patient denies fevers, chills, neck stiffness, or recent illness. MD Complaint: Headache Onset/Timin -: Days(s) Onset Description: Awoke with symptoms Location: Diffuse Severity scale (1-10): 9 Quality: Similar to previous headaches Consistency: Constant Improves With: Medication Worsens With: Light, Movement of head/neck, Noise Associated Symptoms: Nausea, Neck stiffness, Photophobia, Sensitivity to sound Treatments Prior to Arrival: Migraine medication - Related Data Allergies Allergy/AdvReac Type Severity Reaction Status Date / Time codeine Allergy NAUSEA AND Verified 09/02/16 10:10 VOMITING Latex, Natural Rubber Allergy RASH Verified 09/02/16 10:10 sumatriptan [From Imitrex] Allergy DIFFICULTY Verified 09/02/16 10:10 SWALLOWING sumatriptan succinate Allergy DIFFICULTY Verified 09/02/16 10:10 [From Imitrex] SWALLOWING tramadol Allergy HIVES Verified 09/02/16 10:10 Travel Screening - Travel/Exposure Within Last 30 Days Have you traveled within the last 30 days?: No - Travel Symptoms Symptom Screening: None Review of Systems Constitutional: Denies: Chills, Fever, Malaise, Night sweats Eyes: Denies: Eye discharge, Eye pain ENT: Denies: Congestion, Ear pain, Epistaxis Respiratory: Denies: Cough, Dyspnea Cardiovascular: Denies: Chest pain, Dyspnea on exertion Endocrine: Denies: Fatigue, Heat or cold intolerance Gastrointestinal: Reports: Nausea. Denies: Abdominal pain, Vomiting Genitourinary: Denies: Incontinence, Retention Musculoskeletal: Denies: Arthralgia, Back pain, Gout, Joint swelling Skin: Denies: Bruising, Change in color, Change in hair/nails Neurological: Reports: Headache. Denies: Abnormal gait, Confusion, Seizure Psychiatric: Denies: Anxiety Hematological/Lymphatic: Denies: Anemia, Blood Clots Past Medical History - SOCIAL HISTORY Smoking Status: Former smoker - RESPIRATORY Hx Respiratory Disorders: Yes Hx Asthma: Yes (hx) - CARDIOVASCULAR Hx Cardio Disorders: No - NEURO Hx Neuro Disorders: Yes Hx Headaches: Yes (for 11 years) Comment:: Increased CSF pressure - GI Hx GI Disorders: No - Hx Genitourinary Disorders: No - ENDOCRINE Hx Endocrine Disorders: No - MUSCULOSKELETAL Hx Musculoskeletal Disorders: No - PSYCH Hx Psych Problems: Yes Hx Anxiety: Yes Hx Depression: Yes - HEMATOLOGY/ONCOLOGY Hx Hematology/Oncology Disorders: Yes Hx Anemia: Yes Hx Blood Transfusions: No Comment:: also b12 deficient Family Medical History Any Significant Family History?: Yes Family Hx Comment (NOT TO BE USED IN PLACE OF ITEMS BELOW): mom w/thyroid issues ; dad w/headaches Hx Cancer: Mother *Cancer Comment: "mom's side" w/breast CA Physical Exam - General General Appearance: Alert, Oriented x3, Cooperative, Mild distress Limitations: No limitations - Head Head exam: Atraumatic, Normocephalic, Normal inspection Head exam detail: negative: Abrasion, Contusion, Haas's sign, General tenderness, Hematoma, Laceration - Eye Eye exam: Normal appearance. negative: Conjunctival injection, Periorbital swelling, Periorbital tenderness, Scleral icterus - ENT Ear exam: negative: Auricular hematoma, Auricular trauma Nasal Exam: negative: Active bleeding, Discharge, Dried blood, Foreign body Mouth exam: negative: Drooling, Laceration, Muffled voice, Tongue elevation - Neck Neck exam: Normal inspection. negative: Meningismus, Tenderness - Respiratory Respiratory exam: Normal lung sounds bilaterally. negative: Rales, Respiratory distress, Rhonchi, Stridor - Cardiovascular Cardiovascular Exam: Regular rate, Normal rhythm, Normal heart sounds - GI/Abdominal GI/Abdominal exam: Soft. negative: Rebound, Rigid, Tenderness - Rectal Rectal exam: Deferred - exam: Deferred - Extremities Extremities exam: Normal inspection. negative: Pedal edema, Tenderness - Neurological Neurological exam: Alert, Normal gait, Oriented X3 - Psychiatric Psychiatric exam: Flat affect, Normal mood - Skin Skin exam: Normal color. negative: Abrasion Type of lesion: negative: abrasion Course Vital Signs 11/06/16 05:54 Temperature 98.2 F Pulse Rate [ 78 Pulse Ox Probe] Respiratory 20 Rate Blood Pressure 115/71 [Left Arm] Pulse Ox 98 - Reevaluation(s) Reevaluation #1: 11/06/16 06:18 Patient reports "Nubain is what really helps my migraine headaches lately". Nubain ordered IM, will reassess. Reevaluation #2: 11/06/16 06:46 Patient reports improvement following Nubain injection, and appears stable for discharge at this time with sober ride. Disposition Disposition: Discharge Clinical Impression: Atypical migraine Disposition: Home, Self-Care Condition: (2) Stable Instructions: Acute Headache (ED) Additional Instructions: Return to ED if your symptoms worsen or if you have any concerns. Follow-up with your family doctor in 1-3 days. Forms: Patient Portal Access Time of Disposition: 06:19 Quality - Quality Measures Quality Measures: N/A - Blood Pressure Screening Does Patient Have Any of the Following: No Blood Pressure Classification: Normal BP Reading Systolic Measurement: 115 Diastolic Measurement: 71 Screening for High Blood Pressure: < Normal BP, F/U Not Required > [G8783]
== END 2016-11-06 06:57 | disposition home or self-care (01) ==
LOC: ER 05:49
DX: G43.909 Migraine, unspecified, not intractable, without status migrainosus (principal); R11.0 Nausea; M43.6 Torticollis
CPT/HCPCS: 99283 ×2; 96372; J2300; J2550

== ENCOUNTER 2016-11-30 02:00 | Emergency (ER) | payer MEDICAID ==
[2016-11-30] MEDS ORDERED: DIPHENHYDRAMINE HCL IV 50 MG/ML VIAL IVP ONE (02:29)
[2016-11-30] MEDS ORDERED: METOCLOPRAMIDE HCL 10 MG/2 ML VIAL IVP ONE (02:29)
[2016-11-30] MEDS ORDERED: KETOROLAC 30 MG/ML VIAL IVP ONE (02:29)
--- NOTE | 2016-11-30 02:31 | Emergency Department Record ---
History of Present Illness - General Chief Complaint: Headache Migraine Stated Complaint: MIGRAINE Time Seen by Provider: 11/30/16 02:04 Source: Patient Mode of Arrival: Ambulatory Limitations: No limitations - History of Present Illness Initial Comments: The patient is here due to a typical migraine KIDD for the last 4 days. The pain is retro-orbital and over the top of the head. It is an aching pain that is associated with nausea and mild photophobia. The patient has a long hx of these exact same KIDD's and does have a Neurologist and has had multiple negative MRI' s. She did call her Neurologist recently and was also recently started on Depakoate. MD Complaint: Headache Onset/Timin -: Days(s) Onset Description: Gradual, Awoke with symptoms Location: Diffuse, Retro-orbital Severity: Moderate Severity scale (1-10): 8 Quality: Aching, Similar to previous headaches Consistency: Constant Improves With: Nothing Worsens With: Movement of head/neck Treatments Prior to Arrival: Migraine medication, Prescription analgesic - Symptoms of Stroke Baseline State: Baseline State - Related Data Home Medications Medication Instructions Recorded Confirmed Last Taken Divalproex Sodium [Depakote] 250 mg PO BID 11/30/16 11/30/16 Unknown Allergies Allergy/AdvReac Type Severity Reaction Status Date / Time codeine Allergy NAUSEA AND Verified 11/30/16 02:09 VOMITING Latex, Natural Rubber Allergy RASH Verified 11/30/16 02:09 sumatriptan [From Imitrex] Allergy DIFFICULTY Verified 11/30/16 02:09 SWALLOWING sumatriptan succinate Allergy DIFFICULTY Verified 11/30/16 02:09 [From Imitrex] SWALLOWING tramadol Allergy HIVES Verified 11/30/16 02:09 Travel Screening - Travel/Exposure Within Last 30 Days Have you traveled within the last 30 days?: No - Travel/Exposure Within Last Year Have you traveled outside the [place] in the last year?: No - Additonal Travel Details Have you been exposed to anyone with a communicable illness?: No - Travel Symptoms Symptom Screening: None Review of Systems Constitutional: Denies: Chills, Fever Eyes: Denies: Eye discharge ENT: Denies: Congestion, Throat pain Respiratory: Denies: Cough, Dyspnea Past Medical History - SOCIAL HISTORY Smoking Status: Former smoker Alcohol Use: Rare Drug Use: None - RESPIRATORY Hx Respiratory Disorders: Yes Hx Asthma: Yes (hx) - CARDIOVASCULAR Hx Cardio Disorders: No - NEURO Hx Neuro Disorders: Yes Hx Headaches: Yes (for 11 years) Comment:: Increased CSF pressure - GI Hx GI Disorders: No - Hx Genitourinary Disorders: No - ENDOCRINE Hx Endocrine Disorders: No - MUSCULOSKELETAL Hx Musculoskeletal Disorders: No - PSYCH Hx Psych Problems: Yes Hx Anxiety: Yes Hx Depression: Yes - HEMATOLOGY/ONCOLOGY Hx Hematology/Oncology Disorders: Yes Hx Anemia: Yes Hx Blood Transfusions: No Comment:: also b12 deficient Family Medical History Any Significant Family History?: Yes Family Hx Comment (NOT TO BE USED IN PLACE OF ITEMS BELOW): mom w/thyroid issues ; dad w/headaches Hx Cancer: Mother *Cancer Comment: "mom's side" w/breast CA Physical Exam - General General Appearance: Alert, Oriented x3, Cooperative, No acute distress (The patient appears very comfortable at this time.) - Head Head exam: Atraumatic, Normocephalic, Normal inspection - Eye Eye exam: Normal appearance, PERRL, EOMI - Neck Neck exam: Normal inspection, Full ROM. negative: Meningismus (The neck is very supple.), Tenderness - Respiratory Respiratory exam: Normal lung sounds bilaterally. negative: Respiratory distress - Cardiovascular Cardiovascular Exam: Regular rate, Normal rhythm, Normal heart sounds - GI/Abdominal GI/Abdominal exam: Soft, Normal bowel sounds. negative: Tenderness - Extremities Extremities exam: Normal inspection, Full ROM, Normal capillary refill. negative: Tenderness - Neurological Neurological exam: Alert, Normal gait, Oriented X3. negative: Abnormal gait, Motor sensory deficit - Psychiatric Psychiatric exam: negative: Anxious, Depressed Course Vital Signs 11/30/16 02:23 Temperature 97.9 F Pulse Rate [ 88 Pulse Ox Probe] Respiratory 18 Rate Blood Pressure 139/86 [Left Arm] Pulse Ox 98 - Reevaluation(s) Reevaluation #1: The patient is doing better. Her pain is resolving very well and she is ready for home. 11/30/16 03:24 Disposition Disposition: Discharge Clinical Impression: Migraine Qualifiers: Migraine type: unspecified Status migrainosus presence: without status migrainosus Intractability: not intractable Qualified Code(s): G43.909 - Migraine, unspecified, not intractable, without status migrainosus Disposition: Home, Self-Care Condition: (2) Stable Instructions: Migraine Headache (ED) Additional Instructions: Please continue your regular medicines. Please see your Neurologist if not better tomorrow. Return to the ER if worse. Forms: Patient Portal Access Time of Disposition: 03:25 Quality - Quality Measures Quality Measures: N/A - Blood Pressure Screening View Details: Yes Does Patient Have Any of the Following: No Blood Pressure Classification: Pre-Hypertensive BP Reading Systolic Measurement: 139 Diastolic Measurement: 86 Screening for High Blood Pressure: < Pre-Hypertensive BP, F/U Documented > [ G8950] Pre-Hypertensive Follow-up Interventions: Referral to alternative/primary care provider.
[2016-11-30] MEDS ORDERED: 0.9 % SODIUM CHLORIDE 1,000 ML BAG IV ONE (02:35)
[2016-11-30] MEDS ORDERED: NALBUPHINE HCL 20 MG/ML AMPULE IM ONE (03:04)
== END 2016-11-30 03:37 | disposition home or self-care (01) ==
LOC: ER 02:00
DX: G43.909 Migraine, unspecified, not intractable, without status migrainosus (principal); R11.0 Nausea; H53.149 Visual discomfort, unspecified
CPT/HCPCS: 99284 ×2; 96374; 96372; 96375; J1885; J2300; J1200; J2765; J7030

== ENCOUNTER 2017-01-19 12:50 | Emergency (ER) | payer MEDICAID ==
[2017-01-19] MEDS: 0.9 % SODIUM CHLORIDE 1000ML 1,000 ML IV ONE (14:03)
[2017-01-19] MEDS: KETOROLAC 30 MG/ML VIAL IVP ONE (14:03)
[2017-01-19] MEDS: DIPHENHYDRAMINE HCL IV 50 MG/ML VIAL IVP ONE (14:04)
[2017-01-19] MEDS: METOCLOPRAMIDE HCL 10 MG/2 ML VIAL IVP ONE (14:04)
--- NOTE | 2017-01-19 14:09 | Emergency Department Record ---
History of Present Illness - General Chief Complaint: Headache Migraine Stated Complaint: MIGRAINE Time Seen by Provider: 01/19/17 13:37 Mode of Arrival: Ambulatory - History of Present Illness Initial Comments: headache started 10 days ago. MD Complaint: Headache, "Migraine" Onset/Timin -: Days(s) Onset Description: Gradual Location: Frontal Severity: Moderate Severity scale (1-10): 7 Quality: Similar to previous headaches Consistency: Constant Improves With: Nothing Worsens With: None Associated Symptoms: Photophobia, Sensitivity to sound Treatments Prior to Arrival: Prescription analgesic - Related Data Home Medications Medication Instructions Recorded Confirmed Last Taken Onabotulinumtoxina [Botox] 100 unit IJ ASDIR 01/19/17 01/19/17 Unknown Temazepam [Restoril] 15 mg PO QHS 01/19/17 01/19/17 01/18/17 Allergies Allergy/AdvReac Type Severity Reaction Status Date / Time codeine Allergy NAUSEA AND Verified 01/19/17 13:03 VOMITING Latex, Natural Rubber Allergy RASH Verified 01/19/17 13:03 sumatriptan [From Imitrex] Allergy DIFFICULTY Verified 01/19/17 13:03 SWALLOWING sumatriptan succinate Allergy DIFFICULTY Verified 01/19/17 13:03 [From Imitrex] SWALLOWING tramadol Allergy HIVES Verified 01/19/17 13:03 Travel Screening - Travel/Exposure Within Last 30 Days Have you traveled within the last 30 days?: No - Travel/Exposure Within Last Year Have you traveled outside the [place] in the last year?: No - Additonal Travel Details Have you been exposed to anyone with a communicable illness?: No - Travel Symptoms Symptom Screening: None Review of Systems Reviewed: No additional complaints except as noted below Constitutional: Reports: As per HPI. Denies: Chills, Fever, Malaise, Night sweats, Weakness, Weight change Eyes: Reports: As per HPI. Denies: Eye discharge, Eye pain, Photophobia, Vision change ENT: Reports: As per HPI. Denies: Congestion, Dental pain, Ear pain, Epistaxis , Hearing loss, Throat pain Respiratory: Reports: As per HPI. Denies: Cough, Dyspnea, Hemoptysis, Stridor, Wheezes Cardiovascular: Reports: As per HPI. Denies: Arrhythmia, Chest pain, Dyspnea on exertion, Edema, Murmurs, Orthopnea, Palpitations, Paroxysmal nocturnal dyspnea, Rheumatic Fever, Syncope Endocrine: Reports: As per HPI. Denies: Fatigue, Heat or cold intolerance, Polydipsia, Polyuria Gastrointestinal: Reports: As per HPI. Denies: Abdominal pain, Constipation, Diarrhea, Hematemesis, Hematochezia, Melena, Nausea, Vomiting Genitourinary: Reports: As per HPI. Denies: Abnormal menses, Discharge, Dyspareunia, Dysuria, Frequency, Hematuria, Incontinence, Retention, Urgency Musculoskeletal: Reports: As per HPI. Denies: Arthralgia, Back pain, Gout, Joint swelling, Myalgia, Neck pain Skin: Reports: As per HPI. Denies: Bruising, Change in color, Change in hair/ nails, Lesions, Pruritus, Rash Neurological: Reports: As per HPI. Denies: Abnormal gait, Confusion, Headache, Numbness, Paresthesias, Seizure, Tingling, Tremors, Vertigo, Weakness Psychiatric: Reports: As per HPI. Denies: Anxiety, Auditory hallucinations, Depression, Homicidal thoughts, Suicidal thoughts, Visual hallucinations Hematological/Lymphatic: Reports: As per HPI. Denies: Anemia, Blood Clots, Easy bleeding, Easy bruising, Swollen glands Past Medical History - SOCIAL HISTORY Smoking Status: Former smoker Alcohol Use: Rare Drug Use: None - RESPIRATORY Hx Respiratory Disorders: Yes Hx Asthma: Yes (hx) - CARDIOVASCULAR Hx Cardio Disorders: No - NEURO Hx Neuro Disorders: Yes Hx Headaches: Yes (for 11 years) Comment:: Increased CSF pressure - GI Hx GI Disorders: No - Hx Genitourinary Disorders: No - ENDOCRINE Hx Endocrine Disorders: No - MUSCULOSKELETAL Hx Musculoskeletal Disorders: No - PSYCH Hx Psych Problems: Yes Hx Anxiety: Yes Hx Depression: Yes - HEMATOLOGY/ONCOLOGY Hx Hematology/Oncology Disorders: Yes Hx Anemia: Yes Hx Blood Transfusions: No Comment:: also b12 deficient Family Medical History Any Significant Family History?: Yes Family Hx Comment (NOT TO BE USED IN PLACE OF ITEMS BELOW): mom w/thyroid issues ; dad w/headaches Hx Cancer: Mother *Cancer Comment: "mom's side" w/breast CA Physical Exam - General General Appearance: Alert, Oriented x3, Cooperative, No acute distress - Head Head exam: Normal inspection - Eye Eye exam: Normal appearance, PERRL Pupils: Normal accommodation - ENT ENT exam: Normal exam, Mucous membranes moist, Normal external ear exam, Normal orophraynx, TM's normal bilaterally Ear exam: Normal external inspection. negative: External canal tenderness Nasal Exam: Normal inspection. negative: Discharge, Sinus tenderness Mouth exam: Normal external inspection, Tongue normal Teeth exam: Normal inspection. negative: Dental caries Throat exam: Normal inspection. negative: Tonsillar erythema, Tonsillar exudate - Neck Neck exam: Normal inspection, Full ROM. negative: Tenderness - Respiratory Respiratory exam: Normal lung sounds bilaterally. negative: Respiratory distress - Cardiovascular Cardiovascular Exam: Regular rate, Normal rhythm, Normal heart sounds - GI/Abdominal GI/Abdominal exam: Soft, Normal bowel sounds. negative: Tenderness - Rectal Rectal exam: Deferred - exam: Deferred - Extremities Extremities exam: Normal inspection, Full ROM, Normal capillary refill. negative: Tenderness - Back Back exam: Reports: Normal inspection, Full ROM. Denies: Muscle spasm, Rash noted, Tenderness - Neurological Neurological exam: Alert, Normal gait, Oriented X3, Reflexes normal - Psychiatric Psychiatric exam: Normal affect, Normal mood - Skin Skin exam: Dry, Intact, Normal color, Warm Course Vital Signs 01/19/17 13:10 Temperature 97.6 F Pulse Rate 85 Respiratory 18 Rate Blood Pressure 120/73 Pulse Ox 99 - Reevaluation(s) Reevaluation #1: feeling better 01/19/17 14:23 Reevaluation #2: 01/19/17 15:05 feeling better Disposition Clinical Impression: Migraine Qualifiers: Migraine type: with aura Status migrainosus presence: without status migrainosus Intractability: not intractable Qualified Code(s): G43.109 - Migraine with aura, not intractable, without status migrainosus Disposition: Home, Self-Care Condition: (1) Good Instructions: Migraine Headache (ED) Additional Instructions: follow up with neurologist Forms: Patient Portal Access Time of Disposition: 15:07 Quality - Quality Measures Quality Measures: N/A - Blood Pressure Screening Does Patient Have Any of the Following: No Blood Pressure Classification: Pre-Hypertensive BP Reading Systolic Measurement: 120 Diastolic Measurement: 73 Screening for High Blood Pressure: < Pre-Hypertensive BP, F/U Documented > [ G8950] Pre-Hypertensive Follow-up Interventions: Referral to alternative/primary care provider.
[2017-01-19] MEDS: NALBUPHINE HCL 20 MG/ML AMPULE IM ONE (14:38)
== END 2017-01-19 15:21 | disposition home or self-care (01) ==
LOC: ER 12:50
DX: G43.109 Migraine with aura, not intractable, without status migrainosus (principal); H53.149 Visual discomfort, unspecified
CPT/HCPCS: 99284 ×2; 96374; 96372; 96375; 96361; J1885; J2300; J1200; J2765

== ENCOUNTER 2017-01-26 08:26 | Emergency (ER) | payer MEDICAID ==
--- NOTE | 2017-01-26 09:06 | Emergency Department Record ---
History of Present Illness - General Chief complaint: Head Injury Stated complaint: KIDD ,SLURRED SPEECH,HIT HEAD Time Seen by Provider: 01/26/17 08:32 Source: Patient Mode of Arrival: Ambulatory - History of Present Illness Initial comments: Patient fell last night about 9 hours ago and she said she hit her head from a standing position and she fell about 6 times. She denies preg had a vasecomy and she had a ablation of uterus. states slurred speech and shuffling gait and she was moving arms and legs appropriately to verbal command in the supine position. No LOC her entire head hurts. She has midline neck pain and lumbar spine pain to palpation. Patient took two fiorocet at 3 am ( 6 hours ago). PMH migraine headaches and she was her one week ago for a migraine. Onset/Timin -: Hour(s) Loss of Consciousness: No Place: Home Severity scale (1-10): 10 Quality: Aching Consistency: Constant Other Injuries: None - Related Data Allergies/Adverse reactions: Allergies Allergy/AdvReac Type Severity Reaction Status Date / Time codeine Allergy NAUSEA AND Verified 01/26/17 08:41 VOMITING Latex, Natural Rubber Allergy RASH Verified 01/26/17 08:41 sumatriptan [From Imitrex] Allergy DIFFICULTY Verified 01/26/17 08:41 SWALLOWING sumatriptan succinate Allergy DIFFICULTY Verified 01/26/17 08:41 [From Imitrex] SWALLOWING tramadol Allergy HIVES Verified 01/26/17 08:41 Travel Screening - Travel/Exposure Within Last 30 Days Have you traveled within the last 30 days?: No - Travel/Exposure Within Last Year Have you traveled outside the [place] in the last year?: No - Additonal Travel Details Have you been exposed to anyone with a communicable illness?: No - Travel Symptoms Symptom Screening: None Review of Systems Reviewed: No additional complaints except as noted below Constitutional: Reports: As per HPI. Denies: Chills, Fever, Malaise, Night sweats, Weakness, Weight change Eyes: Reports: As per HPI. Denies: Eye discharge, Eye pain, Photophobia, Vision change ENT: Reports: As per HPI. Denies: Congestion, Dental pain, Ear pain, Epistaxis , Hearing loss, Throat pain Respiratory: Reports: As per HPI. Denies: Cough, Dyspnea, Hemoptysis, Stridor, Wheezes Cardiovascular: Reports: As per HPI. Denies: Arrhythmia, Chest pain, Dyspnea on exertion, Edema, Murmurs, Orthopnea, Palpitations, Paroxysmal nocturnal dyspnea, Rheumatic Fever, Syncope Endocrine: Reports: As per HPI. Denies: Fatigue, Heat or cold intolerance, Polydipsia, Polyuria Gastrointestinal: Reports: As per HPI. Denies: Abdominal pain, Constipation, Diarrhea, Hematemesis, Hematochezia, Melena, Nausea, Vomiting Genitourinary: Reports: As per HPI. Denies: Abnormal menses, Discharge, Dyspareunia, Dysuria, Frequency, Hematuria, Incontinence, Retention, Urgency Musculoskeletal: Reports: As per HPI. Denies: Arthralgia, Back pain, Gout, Joint swelling, Myalgia, Neck pain Skin: Reports: As per HPI. Denies: Bruising, Change in color, Change in hair/ nails, Lesions, Pruritus, Rash Neurological: Reports: As per HPI, Abnormal gait, Headache. Denies: Confusion, Numbness, Paresthesias, Seizure, Tingling, Tremors, Vertigo, Weakness Psychiatric: Reports: As per HPI. Denies: Anxiety, Auditory hallucinations, Depression, Homicidal thoughts, Suicidal thoughts, Visual hallucinations Hematological/Lymphatic: Reports: As per HPI. Denies: Anemia, Blood Clots, Easy bleeding, Easy bruising, Swollen glands Past Medical History - SOCIAL HISTORY Smoking Status: Former smoker Alcohol Use: Rare Drug Use: None - RESPIRATORY Hx Respiratory Disorders: Yes Hx Asthma: Yes (hx) - CARDIOVASCULAR Hx Cardio Disorders: No - NEURO Hx Neuro Disorders: Yes Hx Headaches: Yes (for 11 years) Comment:: Increased CSF pressure - GI Hx GI Disorders: No - Hx Genitourinary Disorders: No - ENDOCRINE Hx Endocrine Disorders: No - MUSCULOSKELETAL Hx Musculoskeletal Disorders: No - PSYCH Hx Psych Problems: Yes Hx Anxiety: Yes Hx Depression: Yes - HEMATOLOGY/ONCOLOGY Hx Hematology/Oncology Disorders: Yes Hx Anemia: Yes Hx Blood Transfusions: No Comment:: also b12 deficient Family Medical History Any Significant Family History?: No Family Hx Comment (NOT TO BE USED IN PLACE OF ITEMS BELOW): mom w/thyroid issues ; dad w/headaches Hx Cancer: Mother *Cancer Comment: "mom's side" w/breast CA Physical Exam - General General Appearance: Alert, Oriented x3, Cooperative, No acute distress - Head Head exam: Normal inspection - Eye Eye exam: Normal appearance, PERRL Pupils: Normal accommodation - ENT ENT exam: Normal exam, Mucous membranes moist, Normal external ear exam, Normal orophraynx, TM's normal bilaterally Ear exam: Normal external inspection. negative: External canal tenderness Nasal Exam: Normal inspection. negative: Discharge, Sinus tenderness Mouth exam: Normal external inspection, Tongue normal Teeth exam: Normal inspection. negative: Dental caries Throat exam: Normal inspection. negative: Tonsillar erythema, Tonsillar exudate - Neck Neck exam: Normal inspection, Tenderness (midline pain on palpation) - Respiratory Respiratory exam: Normal lung sounds bilaterally. negative: Respiratory distress - Cardiovascular Cardiovascular Exam: Regular rate, Normal rhythm, Normal heart sounds - GI/Abdominal GI/Abdominal exam: Soft, Normal bowel sounds. negative: Tenderness - Rectal Rectal exam: Deferred - exam: Deferred - Extremities Extremities exam: Normal inspection, Full ROM, Normal capillary refill. negative: Tenderness - Back Back exam: Reports: Normal inspection, Full ROM, Tenderness (lumbar spine on palpation). Denies: Muscle spasm, Rash noted - Neurological Neurological exam: Alert, Normal gait, Oriented X3, Reflexes normal - Psychiatric Psychiatric exam: Normal affect, Normal mood - Skin Skin exam: Dry, Intact, Normal color, Warm Course Vital Signs 01/26/17 08:30 Temperature 97.6 F Pulse Rate 84 Respiratory 16 Rate Blood Pressure 122/88 Pulse Ox 96 Hard collar applied and IV and labs ordered. - Reevaluation(s) Reevaluation #1: patient is feeling better 01/26/17 11:55 Reevaluation #2: patient is feeling better 01/26/17 12:14 Medical Decision Making - Data Complexity MDM Data: Labs Ordered and/or Reviewed, X-Ray Ordered and/or Reviewed (CT head negative) - Lab Data Result diagrams: 01/26/17 08:51 01/26/17 08:51 Disposition Clinical Impression: Neck pain Headache Qualifiers: Headache type: unspecified Headache chronicity pattern: acute headache Intractability: not intractable Qualified Code(s): R51 - Headache Disposition: Home, Self-Care Condition: (2) Stable Instructions: Head Injury (ED) Additional Instructions: follow up with primary in 2 days Forms: Patient Portal Access Time of Disposition: 12:18 Quality - Quality Measures Quality Measures: N/A - Blood Pressure Screening Does Patient Have Any of the Following: No Blood Pressure Classification: Pre-Hypertensive BP Reading Systolic Measurement: 122 Diastolic Measurement: 88 Screening for High Blood Pressure: < Pre-Hypertensive BP, F/U Documented > [ G8950] Pre-Hypertensive Follow-up Interventions: Referral to alternative/primary care provider.
[2017-01-26] MEDS: 0.9 % SODIUM CHLORIDE 1000ML 1,000 ML IV SCH (09:12)
[2017-01-26] MEDS: ONDANSETRON HCL IV 4 MG/2 ML VIAL IVP ONE (09:15)
[2017-01-26 09:23] LABS: BASO % 1.8 % (0-6); EOS % 4.6 % (0-6); HEMATOCRIT 41.2 % (35.0-47.0); LYMPH % 43.4 % (16-45); MEAN CELL VOLUME 96.5 fl (81-97); MEAN CORPUSCULAR HEMOGLOBIN 30.4 pg (27-33); MEAN CORPUSCULAR HGB CONC 31.6 g/dl (32-36); MEAN PLATELET VOLUME 9.9 fl (7.4-10.4); MONO % 6.2 % (0-9); PLATELET COUNT 330 K/uL (130-400); RED BLOOD COUNT 4.27 M/uL (3.80-5.40); WHITE BLOOD COUNT W/O DIFF 4.5 K/uL (4.2-12.2)
[2017-01-26 09:38] LABS: BLOOD UREA NITROGEN 10 mg/dL (6-20); CREATININE 0.6 mg/dL (0.5-0.9); EST GLOMERULAR FILTRATION RATE > 60 mL/min; TOTAL PROTEIN 7.1 g/dL (6.6-8.7)
[2017-01-26 09:40] LABS: GLUCOSE,RANDOM 84 mg/dL (74-109)
[2017-01-26 09:43] LABS: ALBUMIN 4.5 g/dL (4.0-5.0); ALKALINE PHOSPHATASE 55 U/L (35-104); ALT/SGPT 18 U/L (<33); AST/SGOT 16 U/L (10.0-35.0)
[2017-01-26 09:45] LABS: ACETAMINOPHEN < 5.0 ug/mL (10.0-30.0); BILIRUBIN,DIRECT < 0.2 mg/dL (0-0.3); SALICYLATE < 0.3 mg/dL (2.8-20)
[2017-01-26 10:20] LABS: URINE APPEARANCE CLEAR; URINE BILIRUBIN NEGATIVE (NEGATIVE); URINE BLOOD NEGATIVE (NEGATIVE); URINE COLOR YELLOW; URINE GLUCOSE (UA) NEGATIVE (NEGATIVE); URINE KETONE NEGATIVE (NEGATIVE); URINE LEUKOCYTE ESTERASE NEGATIVE (NEGATIVE); URINE NITRITE NEGATIVE (NEGATIVE); URINE PROTEIN NEGATIVE (NEGATIVE); URINE UROBILINOGEN 0.2 E.U./dL (0.20 - 1.00)
[2017-01-26 10:23] LABS: BARBITURATE SCREEN URINE DETECTED; BENZODIAZEPINE SCREEN URINE DETECTED
[2017-01-26 10:24] LABS: AMPHETAMINE SCREEN URINE NOT DETECTED; COCAINE SCREEN URINE NOT DETECTED; METHADONE SCREEN URINE NOT DETECTED; METHAMPHETAMINE SCREEN NOT DETECTED; OPIATE SCREEN URINE NOT DETECTED; OXYCODONE SCREEN URINE NOT DETECTED; PHENCYCLIDINE SCREEN URINE NOT DETECTED; PROPOXYPHENE SCREEN URINE NOT DETECTED; THC SCREEN URINE NOT DETECTED; TRICYCLIC ANTIDEPRESSANT SCRN NOT DETECTED
[2017-01-26] MEDS: DIPHENHYDRAMINE HCL IV 50 MG/ML VIAL IVP ONE (11:14)
[2017-01-26] MEDS: KETOROLAC 30 MG/ML VIAL IVP ONE (11:15)
[2017-01-26] MEDS: METOCLOPRAMIDE HCL 10 MG/2 ML VIAL IVP ONE (11:15)
--- NOTE | 2017-01-27 07:57 | CT SCAN REPORT ---
EXAM: HEAD CT WITHOUT CONTRAST HISTORY: FELL DOWN STAIRS, HIT VERTEX, NO LOSS OF CONSCIOUSNESS. PERSISTENT HEADACHE. TECHNIQUE: Contiguous axial images from the cerebral convexities to the foramen magnum were obtained without contrast. Comparison: Head CT 09/02/16. Encounter: Initial. FINDINGS: The brain volume is normal. No acute intracranial hemorrhage, mass effect, or midline shift. No CT evidence of acute infarct. The ventricles, basal cisterns and sulci are within normal limits. No skull fracture. The soft tissues of the paranasal sinuses are unremarkable. IMPRESSION: NORMAL HEAD CT. JOB NUMBER: [id number] MTDD
--- NOTE | 2017-01-27 08:15 | RADIOLOGY REPORT ---
EXAM: LUMBAR SPINE, THREE VIEWS HISTORY: FELL DOWN STAIRS, LOW BACK PAIN. TECHNIQUE: Three views of the lumbar spine were obtained. Comparison: Lumbar spine 10/12/13. FINDINGS: Five presumed lumbar segments. No acute fracture or subluxation. The facets are unremarkable. IMPRESSION: NO ACUTE OSSEOUS ABNORMALITY OF THE LUMBAR SPINE. JOB NUMBER: [id number] MTDD
--- NOTE | 2017-01-27 08:16 | RADIOLOGY REPORT ---
EXAM: RIGHT SHOULDER, THREE VIEWS HISTORY: FELL DOWN STAIRS. RIGHT SHOULDER PAIN. TECHNIQUE: Three views of the right shoulder were obtained. Comparison: None. Encounter: Initial. FINDINGS: No bone or joint abnormality. IMPRESSION: NEGATIVE RIGHT SHOULDER EXAMINATION. JOB NUMBER: [id number] MTDD
--- NOTE | 2017-01-27 08:18 | RADIOLOGY REPORT ---
EXAM: CERVICAL SPINE, SIX VIEWS HISTORY: FELL DOWN STAIRS, HIT HEAD. TECHNIQUE: Six views of the cervical spine were obtained. Comparison: Head CT same day. Encounter: Initial. FINDINGS: The lateral masses of C1 and C2 have a normal configuration and appear intact. No acute fracture or subluxation. No degenerative change. The prevertebral soft tissues are unremarkable. IMPRESSION: UNREMARKABLE CERVICAL SPINE RADIOGRAPHS. JOB NUMBER: [id number] MTDD
== END 2017-01-26 12:41 | disposition home or self-care (01) ==
LOC: ER 08:26
DX: S06.0X0A Concussion without loss of consciousness, initial encounter (principal); G43.909 Migraine, unspecified, not intractable, without status migrainosus; R47.81 Slurred speech; R26.0 Ataxic gait; M54.5 Low back pain; R41.0 Disorientation, unspecified; M54.2 Cervicalgia; R42 Dizziness and giddiness; M25.511 Pain in right shoulder; R11.0 Nausea; Z91.81 History of falling; W01.198A Fall on same level from slipping, tripping and stumbling with subsequent striking against other object, initial encounter; Y92.009 Unspecified place in unspecified non-institutional (private) residence as the place of occurrence of the external cause
CPT/HCPCS: 70450; 72050; 72100; 80048; 80053; 80076; 80156; 80164; 80305; 80320; 80329; 81003; 82140; 83735; 84443; 84703; 85025; 85730; 96361; 96374; 96375; 99284; 99285; J1200; J1885; J2405; J2765; J7030

== ENCOUNTER 2017-01-26 19:57 | Emergency (ER) | payer MEDICAID ==
--- NOTE | 2017-01-26 20:08 | Emergency Department Record ---
History of Present Illness - General Stated Complaint: SLURRED SPEECH,CONFUSION Time Seen by Provider: 01/26/17 20:06 Source: Patient, Family Mode of Arrival: Wheelchair Limitations: No limitations - History of Present Illness Initial Comments: 41 yo female presents with continued slurring, unstable gate, and periods of confusion since discharge from the ER today. She was seen after a series of multiple falls due to unsteady gait. She reports increases migraines, instability, and falls. She has hit her head on several of the falls. She was seen in the ED today and concussion was the diagnosis. She had a normal HCT. The patient was discharged home. The symptoms have persisted throughout the evening with slurring and difficulty walking. She report her current migraine headache started about 10 days ago but the speech and walking changes started today. MD Complaint: Fall -: Hour(s) Fall From: Standing When Fall Occurred: Other (Falls yesterday, seen in the ED 9am today) Fall Witnessed: Yes, by family Place Fall Occurred: Home Loss of Consciousness: None Prolonged Down Time?: No Symptoms Prior to Fall: None - Related Data Allergies Allergy/AdvReac Type Severity Reaction Status Date / Time codeine Allergy NAUSEA AND Verified 01/26/17 08:41 VOMITING Latex, Natural Rubber Allergy RASH Verified 01/26/17 08:41 sumatriptan [From Imitrex] Allergy DIFFICULTY Verified 01/26/17 08:41 SWALLOWING sumatriptan succinate Allergy DIFFICULTY Verified 01/26/17 08:41 [From Imitrex] SWALLOWING tramadol Allergy HIVES Verified 01/26/17 08:41 Review of Systems Constitutional: Denies: Chills, Fever, Malaise, Weakness Eyes: Denies: Eye discharge, Eye pain, Photophobia, Vision change ENT: Denies: Congestion, Throat pain Respiratory: Denies: Cough, Dyspnea, Hemoptysis, Stridor, Wheezes Cardiovascular: Denies: Chest pain, Dyspnea on exertion, Palpitations, Syncope Endocrine: Denies: Fatigue Gastrointestinal: Denies: Abdominal pain, Diarrhea, Nausea, Vomiting Genitourinary: Denies: Dysuria, Urgency Musculoskeletal: Denies: Arthralgia, Back pain, Joint swelling, Myalgia Skin: Denies: Bruising, Change in color, Rash Neurological: Reports: Abnormal gait, Headache (10 days of a migraine), Vertigo. Denies: Confusion, Numbness Psychiatric: Denies: Anxiety Hematological/Lymphatic: Denies: Blood Clots, Easy bleeding, Easy bruising, Swollen glands Past Medical History - SOCIAL HISTORY Smoking Status: Former smoker Drug Use: None - RESPIRATORY Hx Respiratory Disorders: Yes Hx Asthma: Yes (hx) - CARDIOVASCULAR Hx Cardio Disorders: No - NEURO Hx Neuro Disorders: Yes Hx Headaches: Yes (for 11 years) Comment:: Increased CSF pressure - GI Hx GI Disorders: No - Hx Genitourinary Disorders: No - ENDOCRINE Hx Endocrine Disorders: No - MUSCULOSKELETAL Hx Musculoskeletal Disorders: No - PSYCH Hx Psych Problems: Yes Hx Anxiety: Yes Hx Depression: Yes - HEMATOLOGY/ONCOLOGY Hx Hematology/Oncology Disorders: Yes Hx Anemia: Yes Hx Blood Transfusions: No Comment:: also b12 deficient Family Medical History Family Hx Comment (NOT TO BE USED IN PLACE OF ITEMS BELOW): mom w/thyroid issues ; dad w/headaches Hx Cancer: Mother *Cancer Comment: "mom's side" w/breast CA Physical Exam - General General Appearance: Alert, Oriented x3, Cooperative, Other (some slurring noted , some slowing of responses noted) - Head Head exam: Normal inspection. negative: Atraumatic Head exam detail: Contusion - Eye Eye exam: Normal appearance, PERRL, EOMI. negative: Conjunctival injection, Periorbital swelling - ENT ENT exam: negative: Normal exam, Mucous membranes moist Ear exam: negative: Normal external inspection Nasal Exam: negative: Normal inspection Mouth exam: negative: Normal external inspection Teeth exam: negative: Normal inspection - Neck Neck exam: Normal inspection, Full ROM. negative: Tenderness - Respiratory Respiratory exam: Normal lung sounds bilaterally. negative: Respiratory distress - Cardiovascular Cardiovascular Exam: Regular rate, Normal rhythm, Normal heart sounds Peripheral Pulses: 2+: Radial (R), Radial (L) - GI/Abdominal GI/Abdominal exam: Soft. negative: Tenderness - Rectal Rectal exam: Deferred - exam: Deferred - Extremities Extremities exam: Normal inspection, Full ROM, Normal capillary refill. negative: Tenderness - Back Back exam: Reports: Full ROM. Denies: CVA tenderness (R), CVA tenderness (L) - Neurological Neurological exam: Abnormal gait (wobbly, shuffled gait), Alert, Altered, CN II- XII intact, Oriented X3, Other (Mild slurring of speech, mild dysmetria with FTN , unstable with Rhomberg). negative: Motor sensory deficit, Normal gait, Reflexes normal - Psychiatric Psychiatric exam: Normal affect, Normal mood. negative: Agitated, Anxious - Skin Skin exam: Dry, Intact, Normal color, Warm Course - Reevaluation(s) Reevaluation #1: 01/26/17 21:32 The labs were reviewed. No acute changes The alcohol, aspirin and Tylenol were negative 01/26/17 21:54 HeadCT is negative 01/26/17 22:31 No acute changes to the CBC or CMP Given her persistent difficulty with walking and speech I recommend transfer to [facility] for evaluation for concussion, ataxia, migraines, polypharmacology, Through [facility] SW Dr Saravia He agrees to accept the transfer for further work up of her symptoms given resources such as MRI and Neurology are not available at [facility] Medical Decision Making - Lab Data Result diagrams: 01/26/17 20:25 01/26/17 20:25 Disposition Disposition: Transfer Clinical Impression: Ataxia, Slurred speech, Concussion, Migraine Disposition: Acute Care Hospital Transfer Transfer To: [facility] Reason For Transfer: ataxia, concussion, slurred speech Accepting Physician: Manjit Time Discussed w/Accepting Physician: 22:33 Condition: (2) Stable Time of Disposition: 22:33 Quality - Quality Measures Quality Measures: N/A - Blood Pressure Screening Does Patient Have Any of the Following: No Blood Pressure Classification: Hypertensive Reading Systolic Measurement: 134 Diastolic Measurement: 90 Screening for High Blood Pressure: < Pre-Hypertensive BP, F/U Documented > [ G8950] Pre-Hypertensive Follow-up Interventions: Referral to alternative/primary care provider.
[2017-01-26 20:38] LABS: BASO % 1.4 % (0-6); EOS % 4.2 % (0-6); GRAN % 43.4 % (47-80); HEMATOCRIT 38.5 % (35.0-47.0); HEMOGLOBIN 12.3 gm/dl (11.6-16.0); LYMPH % 44.7 % (16-45); MEAN CELL VOLUME 96.5 fl (81-97); MEAN CORPUSCULAR HEMOGLOBIN 30.8 pg (27-33); MEAN CORPUSCULAR HGB CONC 31.9 g/dl (32-36); MONO % 6.3 % (0-9); PLATELET COUNT 315 K/uL (130-400); RED BLOOD COUNT 3.99 M/uL (3.80-5.40); RED CELL DISTRIBUTION WIDTH 12.9 % (11.5-14.5); WHITE BLOOD COUNT W/O DIFF 5.1 K/uL (4.2-12.2)
[2017-01-26 20:48] LABS: BILIRUBIN,TOTAL < 0.20 mg/dL (0.2-1.0); BLOOD UREA NITROGEN 17 mg/dL (6-20); CREATININE 0.5 mg/dL (0.5-0.9); EST GLOMERULAR FILTRATION RATE > 60 mL/min
[2017-01-26 20:49] LABS: TOTAL PROTEIN 6.3 g/dL (6.6-8.7)
[2017-01-26 20:51] LABS: GLUCOSE,RANDOM 126 mg/dL (74-109)
[2017-01-26 20:53] LABS: ACETAMINOPHEN 10.1 ug/mL (10.0-30.0); ALB/GLOB RATIO 1.7 (1.1-1.8); ALKALINE PHOSPHATASE 50 U/L (35-104); ALT/SGPT 17 U/L (<33); AST/SGOT 15 U/L (10.0-35.0)
[2017-01-26 20:55] LABS: SALICYLATE < 0.3 mg/dL (2.8-20); VALPROIC ACID (DEPAKENE) < 2.8 ug/mL (50.0-100.0)
[2017-01-26 21:04] LABS: THYROID STIMULATING HORMONE 1.53 uIU/mL (0.270-4.20)
[2017-01-26] MEDS: ONDANSETRON HCL IV 4 MG/2 ML VIAL IVP ONE (21:08)
[2017-01-26] MEDS: SODIUM CHLORIDE 0.9% 500 ML IV ONE (21:08)
[2017-01-26 21:31] LABS: AMMONIA 25 umol/L (11.0-51.0)
--- NOTE | 2017-01-27 08:22 | CT SCAN REPORT ---
EXAM: HEAD CT HISTORY: PATIENT FELL, SLURRED SPEECH. TECHNIQUE: Noncontrast head CT was obtained. Comparison: None. FINDINGS: The ventricles and subarachnoid spaces are unremarkable. No mass or mass effect. No intra or extraaxial hemorrhage. No CT evidence for large acute territorial infarct. No fracture or acute osseous abnormality. The visualized sinuses are clear. IMPRESSION: UNREMARKABLE HEAD CT. 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 JOB NUMBER: [id number] [facility]
== END 2017-01-26 23:10 | disposition short-term general hospital (02) ==
LOC: ER 19:57
DX: R26.0 Ataxic gait (principal); R47.81 Slurred speech; G43.909 Migraine, unspecified, not intractable, without status migrainosus; R41.0 Disorientation, unspecified; S06.0X0A Concussion without loss of consciousness, initial encounter
CPT/HCPCS: 70450; 80053; 80164; 80320; 80329; 82140; 83735; 84443; 84703; 85025; J2405

== ENCOUNTER 2017-07-26 15:06 | Emergency (ER) | payer MEDICAID ==
--- NOTE | 2017-07-26 15:18 | Emergency Department Record ---
History of Present Illness - General Stated Complaint: MIGRAINE Time Seen by Provider: 07/26/17 15:12 Source: Patient, Family Mode of Arrival: Ambulatory Limitations: No limitations - History of Present Illness Initial Comments: 41 yo female presents with a headache. She states it is her typical migraine. The migraine started yesterday. It is a band like discomfort wrapping around the head. The migraine is associates with some like sensitivity and nausea. She vomited once yesterday. No fever. No vomiting. No new weakness, speech changes, double vision, coordination changes. 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 No new or atypical symptoms. She follows with neurology. Complaint: "Migraine" -: Days(s) (1) Onset Description: Gradual Location: Diffuse Severity: Moderate Quality: Aching, Similar to previous headaches Consistency: Constant Improves With: Nothing Worsens With: Light Associated Symptoms: Nausea, Photophobia Treatments Prior to Arrival: Migraine medication, Other - Related Data Home Medications Medication Instructions Recorded Confirmed Last Taken Aspirin [Adult Aspirin] 81 mg PO DAILY 07/26/17 07/26/17 07/26/17 Buspirone HCl [Buspar] 5 mg PO DAILY 07/26/17 07/26/17 07/26/17 Cetirizine HCl [Zyrtec] 10 mg PO QHS 07/26/17 07/26/17 07/25/17 Duloxetine HCl [Cymbalta] 60 mg PO QHS 07/26/17 07/26/17 07/25/17 Methocarbamol [Robaxin] 750 mg PO BID PRN 07/26/17 07/26/17 Unknown Ondansetron HCl [Zofran] 4 mg PO ASDIR PRN 07/26/17 07/26/17 Unknown Pregabalin (Lyrica) 100Mg Cap 100 mg PO TID 07/26/17 07/26/17 07/26/17 [Lyrica] Allergies Allergy/AdvReac Type Severity Reaction Status Date / Time codeine Allergy NAUSEA AND Verified 07/26/17 15:41 VOMITING Latex, Natural Rubber Allergy RASH Verified 07/26/17 15:41 sumatriptan [From Imitrex] Allergy DIFFICULTY Verified 07/26/17 15:41 SWALLOWING sumatriptan succinate Allergy DIFFICULTY Verified 07/26/17 15:41 [From Imitrex] SWALLOWING tramadol Allergy HIVES Verified 07/26/17 15:41 Review of Systems Constitutional: Denies: Chills, Fever, Malaise, Weakness Eyes: Reports: Vision change. Denies: Eye discharge, Eye pain, Photophobia ENT: Denies: Congestion, Throat pain Respiratory: Denies: Cough, Dyspnea Cardiovascular: Denies: Chest pain, Palpitations, Syncope Endocrine: Reports: Fatigue Gastrointestinal: Reports: Nausea, Vomiting (once). Denies: Abdominal pain, Diarrhea Genitourinary: Denies: Dysuria, Urgency Skin: Denies: Bruising, Change in color, Rash Neurological: Reports: As per HPI, Headache. Denies: Abnormal gait, Confusion, Numbness, Paresthesias, Seizure, Tingling, Tremors, Vertigo, Weakness Psychiatric: Denies: Anxiety Hematological/Lymphatic: Denies: Easy bleeding, Easy bruising, Swollen glands Past Medical History - SOCIAL HISTORY Smoking Status: Former smoker Drug Use: None - RESPIRATORY Hx Respiratory Disorders: Yes Hx Asthma: Yes (hx) - CARDIOVASCULAR Hx Cardio Disorders: No - NEURO Hx Neuro Disorders: Yes Hx Headaches: Yes (for 11 years) Comment:: Increased CSF pressure - GI Hx GI Disorders: No - Hx Genitourinary Disorders: No - ENDOCRINE Hx Endocrine Disorders: No - MUSCULOSKELETAL Hx Musculoskeletal Disorders: No - PSYCH Hx Psych Problems: Yes Hx Anxiety: Yes Hx Depression: Yes - HEMATOLOGY/ONCOLOGY Hx Hematology/Oncology Disorders: Yes Hx Anemia: Yes Hx Blood Transfusions: No Comment:: also b12 deficient Family Medical History Family Hx Comment (NOT TO BE USED IN PLACE OF ITEMS BELOW): mom w/thyroid issues ; dad w/headaches Hx Cancer: Mother *Cancer Comment: "mom's side" w/breast CA Physical Exam - General General Appearance: Alert, Oriented x3, Cooperative, No acute distress, Other ( Well appearing) Limitations: No limitations - Head Head exam: Atraumatic, Normocephalic, Normal inspection - Eye Eye exam: Normal appearance, PERRL, EOMI. negative: Conjunctival injection, Nystagmus, Periorbital swelling, Scleral icterus - ENT ENT exam: Normal exam, Mucous membranes moist, Normal orophraynx. negative: Mucous membranes dry Ear exam: Normal external inspection Nasal Exam: Normal inspection Mouth exam: Normal external inspection Throat exam: Normal inspection - Neck Neck exam: Normal inspection, Full ROM. negative: Lymphadenopathy, Tenderness - Respiratory Respiratory exam: Normal lung sounds bilaterally. negative: Respiratory distress - Cardiovascular Cardiovascular Exam: Regular rate, Normal rhythm, Normal heart sounds - GI/Abdominal GI/Abdominal exam: Soft. negative: Tenderness - Rectal Rectal exam: Deferred - exam: Deferred - Extremities Extremities exam: Normal inspection, Full ROM, Normal capillary refill. negative: Pedal edema - Back Back exam: Denies: CVA tenderness (R), CVA tenderness (L) - Neurological Neurological exam: Alert, CN II-XII intact, Normal gait, Oriented X3, Other (No drift, No double vision, Normal FTN, No ataxia). negative: Altered, Motor sensory deficit - Psychiatric Psychiatric exam: Normal affect, Normal mood. negative: Agitated, Anxious - Skin Skin exam: Dry, Intact, Normal color, Warm Course - Reevaluation(s) Reevaluation #1: EMR reviewed. Prior migraine was November 2016 states last migraine requiring ED was March. 07/26/17 15:32 07/26/17 15:57 Recheck the patient is feeling better 07/26/17 16:48 The patient reports she is feeling better as her migraine has greatly eased up She is ready for DC Disposition Disposition: Discharge Clinical Impression: Migraine Qualifiers: Migraine type: unspecified Status migrainosus presence: without status migrainosus Intractability: not intractable Qualified Code(s): G43.909 - Migraine, unspecified, not intractable, without status migrainosus Disposition: Home, Self-Care Condition: (1) Good Instructions: Migraine Headache (ED) Additional Instructions: Rest and stay well hydrated Return if any concern, return of symptoms Call your neurologist to report your migraines. Forms: Patient Portal Access Time of Disposition: 16:49 Quality - Quality Measures Quality Measures: N/A, Headache (All Ages) - Headache: Neuroimaging Quality Measure: Measure #419: Overuse of Neuroimaging ICD10 Codes Entered: Yes Neurological Exam: Patient had a normal neurological exam. [G9535] Headache: Use of Neuroimaging: < CTA, CT, MRA or MRI was NOT ordered > [G9534] - Blood Pressure Screening Does Patient Have Any of the Following: No Blood Pressure Classification: Pre-Hypertensive BP Reading Systolic Measurement: 119 Diastolic Measurement: 81 Screening for High Blood Pressure: < Pre-Hypertensive BP, F/U Documented > [ G8950] Pre-Hypertensive Follow-up Interventions: Referral to alternative/primary care provider.
[2017-07-26] MEDS ORDERED: NALBUPHINE HCL 20 MG/ML AMPULE IM ONE (15:27)
[2017-07-26] MEDS ORDERED: DIPHENHYDRAMINE HCL 50 MG/ML VIAL IVP ONE (15:27)
[2017-07-26] MEDS ORDERED: 0.9 % SODIUM CHLORIDE 1,000 ML BAG IV ONE (15:27)
[2017-07-26] MEDS ORDERED: METOCLOPRAMIDE HCL 10 MG/2 ML VIAL IVP ONE (15:27)
[2017-07-26] MEDS ORDERED: KETOROLAC 30 MG/ML VIAL IVP ONE (15:27)
[2017-07-26] MEDS ORDERED: FENTANYL PF 100MCG/2ML VIAL IVP ONE (16:12)
[2017-07-26] MEDS ORDERED: DEXAMETHASONE 4 MG/ML 1ML VIAL IVP ONE (16:12)
== END 2017-07-26 17:41 | disposition home or self-care (01) ==
LOC: ER 15:06
DX: G43.909 Migraine, unspecified, not intractable, without status migrainosus (principal); R11.0 Nausea; H53.149 Visual discomfort, unspecified; Z87.891 Personal history of nicotine dependence
CPT/HCPCS: 99284 ×2; 96374; 96375; J1885; J3010; J1200; J2765; J7030

== ENCOUNTER 2017-07-28 16:03 | Emergency (ER) | payer MEDICAID ==
--- NOTE | 2017-07-28 16:18 | Emergency Department Record ---
History of Present Illness - General Chief Complaint: Altered Mental Status Stated Complaint: ALT MENTAL STATIS Time Seen by Provider: 07/28/17 16:17 Source: Patient Mode of Arrival: Wheelchair Limitations: No limitations - History of Present Illness Initial Comments: The patient is here due to multiple complaints. She states for the last 15 hours she has had slurred speech, a mild KIDD, difficulty walking with drifting to the R and she has fallen twice. One time she bruised the bridge of her nose and the 2nd time she fell down some carpeted steps injuring her R knee. She denies any neck pain or LOC with the falls. The patient has a long hx of migraine KIDD's and has had a CVA recently due to a PFO that was subsequently closed. She is on multiple psych medicines but denies taking any extra medicines. MD Complaint: Altered mental status, Weakness Onset/Timin -: Hour(s) Associated Symptoms: Difficulty walking, Headaches, Nausea/Vomiting, Weakness - Anu Coma Scale Eye Response: (4) Open spontaneously Motor Response: (6) Obeys commands Verbal Response: (5) Oriented [place] Total: 15 - Related Data Home Medications Medication Instructions Recorded Confirmed Last Taken Diazepam [Valium] 5 mg PO TID 07/28/17 07/28/17 07/28/17 Allergies Allergy/AdvReac Type Severity Reaction Status Date / Time codeine Allergy NAUSEA AND Verified 07/28/17 16:19 VOMITING Latex, Natural Rubber Allergy RASH Verified 07/28/17 16:19 sumatriptan [From Imitrex] Allergy DIFFICULTY Verified 07/28/17 16:19 SWALLOWING sumatriptan succinate Allergy DIFFICULTY Verified 07/28/17 16:19 [From Imitrex] SWALLOWING tramadol Allergy HIVES Verified 07/28/17 16:19 Travel Screening - Travel/Exposure Within Last 30 Days Have you traveled within the last 30 days?: No - Travel/Exposure Within Last Year Have you traveled outside the [place] in the last year?: No - Additonal Travel Details Have you been exposed to anyone with a communicable illness?: No - Travel Symptoms Symptom Screening: None Review of Systems Constitutional: Denies: Chills, Fever Eyes: Denies: Eye discharge ENT: Denies: Congestion Respiratory: Denies: Cough, Dyspnea Past Medical History - SOCIAL HISTORY Smoking Status: Former smoker Alcohol Use: None Drug Use: None - RESPIRATORY Hx Respiratory Disorders: Yes Hx Asthma: Yes (hx) - CARDIOVASCULAR Hx Cardio Disorders: No Comment:: PFO closure - NEURO Hx Neuro Disorders: Yes Hx Headaches: Yes (for 11 years) Comment:: Increased CSF pressure - GI Hx GI Disorders: No - Hx Genitourinary Disorders: No - ENDOCRINE Hx Endocrine Disorders: No - MUSCULOSKELETAL Hx Musculoskeletal Disorders: No - PSYCH Hx Psych Problems: Yes Hx Anxiety: Yes Hx Depression: Yes - HEMATOLOGY/ONCOLOGY Hx Hematology/Oncology Disorders: Yes Hx Anemia: Yes Hx Blood Transfusions: No Comment:: also b12 deficient Family Medical History Any Significant Family History?: No Family Hx Comment (NOT TO BE USED IN PLACE OF ITEMS BELOW): mom w/thyroid issues ; dad w/headaches Hx Cancer: Mother *Cancer Comment: "mom's side" w/breast CA Physical Exam - General General Appearance: Alert, Oriented x3 (The patient is oriented to name, age, Bday, place and year.), Cooperative, No acute distress - Head Head exam: Atraumatic, Normocephalic, Normal inspection - Eye Eye exam: Normal appearance, PERRL, EOMI - ENT Throat exam: Normal inspection. negative: Tonsillar erythema, Tonsillar exudate - Neck Neck exam: Normal inspection, Full ROM. negative: Lymphadenopathy, Meningismus , Tenderness (There is no posterior Cspine tenderness.) - Respiratory Respiratory exam: Normal lung sounds bilaterally. negative: Respiratory distress - Cardiovascular Cardiovascular Exam: Regular rate, Normal rhythm, Normal heart sounds - GI/Abdominal GI/Abdominal exam: Soft, Normal bowel sounds. negative: Tenderness - Extremities Extremities exam: Full ROM, Tenderness (There is mild R knee tenderness with bruising.). negative: Normal inspection - Neurological Neurological exam: Abnormal gait (The patient is to unsteady to ambulate.), Alert, Motor sensory deficit (There is Mild R arm weakness with a mild R pronator drift.), Oriented X3, Reflexes normal. negative: Altered, Normal gait - Skin Skin exam: Abrasion (very minor to the bridge of the nose.) Course Vital Signs 07/28/17 16:07 Temperature 98.3 F Pulse Rate 91 H Respiratory 18 Rate Blood Pressure 103/60 Pulse Ox 95 - Reevaluation(s) Reevaluation #1: The patient is doing a little better and her speech is definitely more clear. She still feels slightly unsteady on her feet and seems to be drifting to the R. She denies any significant pain, nausea, vomiting, or new weakness. Her official CT read is neg for any acute injury pattern so we will consult the Stroke team at [facility] for further management. 07/28/17 17:45 Reevaluation #2: The patient is hemodynamically stable at this time and her slurred speech is improving. Due to the hx of prior recent CVA and her symptoms I did consult the Stroke team at [facility]. I did discuss the case with Dr. Puentes who would like the patient to be sent immediately to the ER at [facility] for a stat head and neck CT to look for possible lesions to fix. I then did discuss the case with Dr. Dougherty and she does accept the patient to the ER in an ER to ER transfer. 07/28/17 18:02 Reevaluation #3: The patient was doing well at the time of discharge. Her speech clearly was improved and she no longer had any R arm pronator drift. Her finger to nose was normal bilaterally also and there were no signs of numbness or weakness to her arms and legs. The patient did bump her L forehead on the handicap bar while bending over while on the cammode. It was extremely minor and there was no sign of trauma after the injury. She did have the head CT after the cammode incident. 07/28/17 18:46 Medical Decision Making - Data Complexity MDM Data: Labs Ordered and/or Reviewed, X-Ray Ordered and/or Reviewed, EKG Ordered and/or Reviewed - Lab Data Result diagrams: 07/28/17 16:38 07/28/17 16:38 - EKG Data -: EKG Interpreted by Nd EKG: No Acute Changes, Normal EKG - Radiology Data Radiology results: Report reviewed (Head CT: Neg ) Disposition Disposition: Transfer Clinical Impression: Ataxia Disposition: Acute Care Hospital Transfer Transfer To: [facility] Reason For Transfer: Ataxia Accepting Physician: Valentin Time Discussed w/Accepting Physician: 18:05 Condition: (2) Stable Forms: Patient Portal Access Time of Disposition: 18:05 Quality - Quality Measures Quality Measures: N/A - Blood Pressure Screening View Details: Yes Does Patient Have Any of the Following: No Blood Pressure Classification: Normal BP Reading Systolic Measurement: 107 Diastolic Measurement: 70 Screening for High Blood Pressure: < Normal BP, F/U Not Required > [G4435]
[2017-07-28 17:03] LABS: BASO % 0.8 % (0-6); EOS % 4.8 % (0-6); GRAN % 50.1 % (47-80); HEMATOCRIT 40.4 % (35.0-47.0); HEMOGLOBIN 12.5 gm/dl (11.6-16.0); LYMPH % 38.3 % (16-45); MEAN CELL VOLUME 98.8 fl (81-97); MEAN CORPUSCULAR HEMOGLOBIN 30.6 pg (27-33); MEAN CORPUSCULAR HGB CONC 30.9 g/dl (32-36); MEAN PLATELET VOLUME 9.4 fl (7.4-10.4); PLATELET COUNT 315 K/uL (130-400); RED BLOOD COUNT 4.09 M/uL (3.80-5.40); RED CELL DISTRIBUTION WIDTH 12.9 % (11.5-14.5); WHITE BLOOD COUNT W/O DIFF 6.3 K/uL (4.2-12.2)
[2017-07-28 17:08] LABS: AMPHETAMINE SCREEN URINE NOT DETECTED; BARBITURATE SCREEN URINE DETECTED; BENZODIAZEPINE SCREEN URINE DETECTED; COCAINE SCREEN URINE NOT DETECTED; METHADONE SCREEN URINE NOT DETECTED; METHAMPHETAMINE SCREEN NOT DETECTED; OPIATE SCREEN URINE NOT DETECTED; OXYCODONE SCREEN URINE NOT DETECTED; PHENCYCLIDINE SCREEN URINE NOT DETECTED; PROPOXYPHENE SCREEN URINE NOT DETECTED; THC SCREEN URINE NOT DETECTED; TRICYCLIC ANTIDEPRESSANT SCRN NOT DETECTED
[2017-07-28 17:13] LABS: BILIRUBIN,TOTAL < 0.20 mg/dL (0.2-1.0); BLOOD UREA NITROGEN 16 mg/dL (6-20); CREATININE 0.6 mg/dL (0.5-0.9); EST GLOMERULAR FILTRATION RATE > 60 mL/min; TOTAL PROTEIN 6.5 g/dL (6.6-8.7)
[2017-07-28 17:15] LABS: GLUCOSE,RANDOM 102 mg/dL (74-109)
[2017-07-28 17:18] LABS: ALB/GLOB RATIO 1.7 (1.1-1.8); ALBUMIN 4.1 g/dL (4.0-5.0); ALKALINE PHOSPHATASE 48 U/L (35-104); ALT/SGPT 15 U/L (<33); AST/SGOT 15 U/L (10.0-35.0)
[2017-07-28] MEDS ORDERED: ASPIRIN 325 MG TABLET PO ONE (17:51)
--- NOTE | 2017-07-30 12:09 | RADIOLOGY REPORT ---
DATE: 07/28/2017 at 5:05 p.m. EXAM: RIGHT KNEE. HISTORY: The patient fell with right knee pain. TECHNIQUE: Three views of the right knee. COMPARISON: None. ENCOUNTER: Initial. FINDINGS: The right knee appears intact with no definite fracture, dislocation , or joint effusion seen. No destructive lesion evident. IMPRESSION: RIGHT KNEE APPEARS NEGATIVE WITH NO DEFINITE FRACTURE IDENTIFIED. JOB NUMBER: [id number] MTDD
--- NOTE | 2017-07-30 12:16 | CT SCAN REPORT ---
DATE: 07/28/2017 at 5:15 p.m. EXAM: EMERGENCY HEAD CT SCAN. HISTORY: Weakness on the right side of the body. Altered mental status and slurred speech. The patient fell. TECHNIQUE: Axial CT scan of the head performed without intravenous contrast. COMPARISON: Head CT dated 01/26/2017. ENCOUNTER: Initial. FINDINGS: No definite acute intracranial hemorrhage identified. No focal mass effect or midline shift apparent. No definite acute infarct or intracranial mass lesion is seen. No depressed calvarial fracture evident. Spina bifida of C1 posteriorly incidentally noted, a midline developmental variant. IMPRESSION: EMERGENCY NONCONTRAST HEAD CT APPEARS NEGATIVE WITH NO DEFINITE ACUTE INTRACRANIAL HEMORRHAGE OR FOCAL MASS EFFECT IDENTIFIED. JOB NUMBER: [id number] MTDD
== END 2017-07-28 18:41 | disposition short-term general hospital (02) ==
LOC: ER 16:03
DX: R27.0 Ataxia, unspecified (principal); R41.82 Altered mental status, unspecified; S00.83XA Contusion of other part of head, initial encounter; R51 Headache; R11.2 Nausea with vomiting, unspecified; R53.1 Weakness; R47.81 Slurred speech; Z86.73 Personal history of transient ischemic attack (TIA), and cerebral infarction without residual deficits; Z87.891 Personal history of nicotine dependence; Z91.81 History of falling; Y92.231 Patient bathroom in hospital as the place of occurrence of the external cause; W22.8XXA Striking against or struck by other objects, initial encounter
CPT/HCPCS: 70450; 80053; 80305; 85025; 93005; 93010; 99285

== ENCOUNTER 2017-08-22 20:08 | Emergency (ER) | payer MEDICAID ==
--- NOTE | 2017-08-22 20:58 | Emergency Department Record ---
History of Present Illness - General Chief Complaint: Headache Migraine Stated Complaint: HEAD PAIN/UNSTABLE GATE-LOC Time Seen by Provider: 08/22/17 20:51 Source: Patient, Family Mode of Arrival: Ambulatory Limitations: No limitations - History of Present Illness Initial Comments: 41 yo female presents with increasing headaches, intermittent confusion, and increased trouble walking. He was found to have a 12cm brain mass and had a biopsy at [facility] on last . The headache has been increasing for a few days. The intermittent confusion and walking changes occurred today. She does not have the biopsy results yet. HCT after the biopsy on August 18 showed trace hemorrhage posterior fossa lesion biopsy. Dr Christie is her doctor MD Complaint: Headache, Other (Confusion at times, trouble walking) -: Unknown Location: Occipital Severity scale (1-10): 9 Quality: Similar to previous headaches Consistency: Constant, Getting worse Improves With: Nothing Worsens With: Other Context: Other Associated Symptoms: Other Other Symptoms: Other Treatments Prior to Arrival: None - Related Data Allergies Allergy/AdvReac Type Severity Reaction Status Date / Time codeine Allergy NAUSEA AND Verified 07/28/17 16:19 VOMITING Latex, Natural Rubber Allergy RASH Verified 07/28/17 16:19 sumatriptan [From Imitrex] Allergy DIFFICULTY Verified 07/28/17 16:19 SWALLOWING sumatriptan succinate Allergy DIFFICULTY Verified 07/28/17 16:19 [From Imitrex] SWALLOWING tramadol Allergy HIVES Verified 07/28/17 16:19 Travel Screening - Travel/Exposure Within Last 30 Days Have you traveled within the last 30 days?: No - Travel Symptoms Symptom Screening: None Review of Systems Constitutional: Reports: Malaise. Denies: Chills, Fever, Weakness Eyes: Denies: Eye discharge, Eye pain, Photophobia, Vision change ENT: Denies: Congestion, Throat pain Respiratory: Denies: Cough, Dyspnea, Hemoptysis, Stridor, Wheezes Cardiovascular: Denies: Chest pain, Palpitations, Syncope Endocrine: Reports: Fatigue. Denies: Polydipsia, Polyuria Gastrointestinal: Reports: Nausea. Denies: Abdominal pain, Diarrhea, Vomiting Genitourinary: Denies: Dysuria, Urgency Musculoskeletal: Denies: Arthralgia, Back pain, Joint swelling, Myalgia Skin: Denies: Bruising, Change in color, Rash Neurological: Reports: As per HPI, Abnormal gait, Confusion, Headache, Vertigo, Weakness. Denies: Tremors Psychiatric: Denies: Anxiety Hematological/Lymphatic: Denies: Blood Clots, Easy bleeding, Easy bruising Past Medical History - SOCIAL HISTORY Smoking Status: Former smoker Alcohol Use: None Drug Use: None - RESPIRATORY Hx Respiratory Disorders: Yes Hx Asthma: Yes (hx) - CARDIOVASCULAR Hx Cardio Disorders: No Comment:: PFO closure - NEURO Hx Neuro Disorders: Yes Hx Headaches: Yes (for 11 years) Comment:: Increased CSF pressure - GI Hx GI Disorders: No - Hx Genitourinary Disorders: No - ENDOCRINE Hx Endocrine Disorders: No - MUSCULOSKELETAL Hx Musculoskeletal Disorders: No - PSYCH Hx Psych Problems: Yes Hx Anxiety: Yes Hx Depression: Yes - HEMATOLOGY/ONCOLOGY Hx Hematology/Oncology Disorders: Yes Hx Anemia: Yes Hx Blood Transfusions: No Comment:: also b12 deficient Family Medical History Any Significant Family History?: Yes Family Hx Comment (NOT TO BE USED IN PLACE OF ITEMS BELOW): mom w/thyroid issues ; dad w/headaches Hx Cancer: Mother *Cancer Comment: "mom's side" w/breast CA Physical Exam - General General Appearance: Alert, Oriented x3, Cooperative, No acute distress, Other ( Mild slow with conversation but no current confusion) Limitations: No limitations - Head Head exam: Atraumatic, Normocephalic, Normal inspection - Eye Eye exam: Normal appearance, PERRL, EOMI. negative: Conjunctival injection, Nystagmus, Periorbital swelling, Scleral icterus - ENT ENT exam: Normal exam, Mucous membranes moist, Normal orophraynx Ear exam: Normal external inspection Nasal Exam: Normal inspection Mouth exam: Normal external inspection Teeth exam: Normal inspection Throat exam: Normal inspection - Neck Neck exam: Normal inspection, Full ROM. negative: Lymphadenopathy, Tenderness - Respiratory Respiratory exam: Normal lung sounds bilaterally. negative: Respiratory distress - Cardiovascular Cardiovascular Exam: Regular rate, Normal rhythm, Normal heart sounds Peripheral Pulses: 2+: Radial (R), Radial (L) - GI/Abdominal GI/Abdominal exam: Soft. negative: Tenderness - Rectal Rectal exam: Deferred - exam: Deferred - Extremities Extremities exam: Normal inspection, Full ROM, Normal capillary refill. negative: Tenderness - Back Back exam: Reports: Normal inspection, Full ROM. Denies: Muscle spasm, Rash noted, Tenderness - Neurological Neurological exam: Alert, CN II-XII intact, Oriented X3, Other (Finger to nose intact, wood grinder intact, symmetric face). negative: Motor sensory deficit - Psychiatric Psychiatric exam: Depressed, Flat affect. negative: Normal affect, Normal mood - Skin Skin exam: Dry, Intact, Normal color, Warm Course Vital Signs 08/22/17 20:19 Temperature 97.9 F Pulse Rate 88 Respiratory 22 Rate Blood Pressure 104/63 Pulse Ox 98 - Reevaluation(s) Reevaluation #1: The labs were reviewed No acute changes The HCT was reviewed. 5mm area of hemorrhage central cerebellum The [facility] ER being called for transfer Copy of all records will be sent No clinical changes in the patient 08/22/17 22:19 08/22/17 22:29 Dr Collins of [facility] reviewed the case He accept the patient for transfer by EMS Medical Decision Making - Lab Data Result diagrams: 08/22/17 20:30 08/22/17 21:20 Disposition Disposition: Transfer Clinical Impression: Cerebellar hemorrhage, acute Disposition: Acute Care Hospital Transfer Transfer To: [facility] Reason For Transfer: Cerebellar Hemorrhage Accepting Physician: Dennis Time Discussed w/Accepting Physician: 22:29 Condition: (2) Stable Forms: Patient Portal Access Time of Disposition: 22:22 Quality - Quality Measures Quality Measures: N/A, Headache (All Ages) - Headache: Neuroimaging Quality Measure: Measure #419: Overuse of Neuroimaging ICD10 Codes Entered: Yes Neurological Exam: Patient did NOT have a normal neurological exam. Headache: Use of Neuroimaging: Patient Exclusion, Abnormal Neuro Exam - Blood Pressure Screening Does Patient Have Any of the Following: No Blood Pressure Classification: Normal BP Reading Systolic Measurement: 104 Diastolic Measurement: 63 Screening for High Blood Pressure: < Normal BP, F/U Not Required > [G8783]
[2017-08-22 21:09] LABS: BASO % 0.7 % (0-6); EOS % 4.7 % (0-6); GRAN % 38.3 % (47-80); HEMATOCRIT 38.4 % (35.0-47.0); HEMOGLOBIN 12.6 gm/dl (11.6-16.0); LYMPH % 49.4 % (16-45); MEAN CELL VOLUME 96.7 fl (81-97); MEAN CORPUSCULAR HEMOGLOBIN 31.7 pg (27-33); MEAN CORPUSCULAR HGB CONC 32.8 g/dl (32-36); MEAN PLATELET VOLUME 10.1 fl (7.4-10.4); MONO % 6.9 % (0-9); PLATELET COUNT 269 K/uL (130-400); RED BLOOD COUNT 3.97 M/uL (3.80-5.40); RED CELL DISTRIBUTION WIDTH 13.4 % (11.5-14.5); WHITE BLOOD COUNT W/O DIFF 8.1 K/uL (4.2-12.2)
[2017-08-22 21:36] LABS: INR 0.9; PARTIAL THROMBOPLASTIN TIME 25.2 SECONDS (24.5-39.1); PROTHROMBIN TIME (PATIENT) 10.1 SECONDS (9.5-12.1)
[2017-08-22 21:44] LABS: ALB/GLOB RATIO 1.6 (1.1-1.8); ALBUMIN 3.6 g/dL (4.0-5.0); ALKALINE PHOSPHATASE 53 U/L (35-104); ALT/SGPT 44 U/L (<33); AST/SGOT 17 U/L (10.0-35.0); BILIRUBIN,TOTAL < 0.20 mg/dL (0.2-1.0); BLOOD UREA NITROGEN 21 mg/dL (6-20); CREATININE 0.6 mg/dL (0.5-0.9); EST GLOMERULAR FILTRATION RATE > 60 mL/min; GLUCOSE,RANDOM 90 mg/dL (74-109); TOTAL PROTEIN 5.8 g/dL (6.6-8.7)
[2017-08-22] MEDS: FENTANYL PF 100MCG/2ML VIAL IVP ONE (22:40)
[2017-08-22] MEDS: ONDANSETRON HCL IV 4 MG/2 ML VIAL IVP ONE (23:04)
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
== END 2017-08-22 23:00 | disposition short-term general hospital (02) ==
LOC: ER 20:08
DX: I61.4 Nontraumatic intracerebral hemorrhage in cerebellum (principal); R41.0 Disorientation, unspecified; R26.2 Difficulty in walking, not elsewhere classified; Z87.891 Personal history of nicotine dependence
CPT/HCPCS: 70450; 80053; 85025; 85610; 85730; 96374; 96375; 99285; J2405

== ENCOUNTER 2017-10-20 17:02 | Emergency (ER) | payer MEDICAID ==
[2017-10-20] MEDS ORDERED: LORAZEPAM 2 MG/ML VIAL IV ONE (17:58)
[2017-10-20] MEDS ORDERED: DIPHENHYDRAMINE HCL 50 MG/ML VIAL IVP ONE (17:58)
[2017-10-20] MEDS ORDERED: METOCLOPRAMIDE HCL 10 MG/2 ML VIAL IVP ONE (17:58)
[2017-10-20] MEDS ORDERED: 0.9 % SODIUM CHLORIDE 1,000 ML BAG IV ONE (17:58)
--- NOTE | 2017-10-20 18:09 | Emergency Department Record ---
History of Present Illness - General Chief complaint: Nausea, Vomiting, Diarrhea Stated complaint: NAUSEA, VOMITING Time Seen by Provider: 10/20/17 17:41 Source: Patient Mode of Arrival: Wheelchair Limitations: No limitations - History of Present Illness Initial comments: The patient is here due to worsening of her chronic nausea and vomiting. 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 She has daily KIDD's and nausea but they have been much worse recently. The pain in her head has been severe for the last 4 days. She also has had very frequent nausea and vomiting and feels dehydrated. The patient denies any new visual changes, neck pain, or any new arm or leg weakness. She states she has chronic R arm leg weakness and balance issues but that is chronic. She does have Oxycontin at home but is not able to keep it down. MD complaint: Nausea, Vomiting Onset/Timin -: Week(s) Severity scale (1-10): 10 Quality: Constant Improves with: None Worsens with: None Associated Symptoms: Nausea/vomiting - Related Data Home Medications Medication Instructions Recorded Confirmed Last Taken Acetaminophen [Tylenol Extra 500 mg PO Q6H 10/20/17 10/20/17 Unknown Strength] Gabapentin [Neurontin] 400 mg PO TID 10/20/17 10/20/17 Unknown Multivitamin [Daily Multiple 1 each PO DAILY 10/20/17 10/20/17 Unknown Vitamin] Oxycodone HCl [Oxycontin] 10 mg PO Q4H 10/20/17 10/20/17 Unknown Prochlorperazine Maleate 10 mg PO DAILY 10/20/17 10/20/17 Unknown [Compazine] Allergies Allergy/AdvReac Type Severity Reaction Status Date / Time codeine Allergy NAUSEA AND Verified 10/20/17 17:27 VOMITING Latex, Natural Rubber Allergy RASH Verified 10/20/17 17:27 sumatriptan [From Imitrex] Allergy DIFFICULTY Verified 10/20/17 17:27 SWALLOWING sumatriptan succinate Allergy DIFFICULTY Verified 10/20/17 17:27 [From Imitrex] SWALLOWING tramadol Allergy HIVES Verified 10/20/17 17:27 Travel Screening - Travel/Exposure Within Last 30 Days Have you traveled within the last 30 days?: No - Travel/Exposure Within Last Year Have you traveled outside the [place] in the last year?: No - Additonal Travel Details Have you been exposed to anyone with a communicable illness?: No - Travel Symptoms Symptom Screening: None Review of Systems Constitutional: Denies: Chills, Fever, Malaise Eyes: Denies: Eye discharge ENT: Denies: Congestion Respiratory: Denies: Cough, Dyspnea Cardiovascular: Denies: Arrhythmia, Chest pain Endocrine: Reports: Fatigue Gastrointestinal: Reports: Nausea, Vomiting. Denies: Diarrhea Genitourinary: Denies: Dysuria Musculoskeletal: Denies: Back pain Neurological: Reports: Headache (chronic.) Past Medical History - SOCIAL HISTORY Smoking Status: Former smoker Alcohol Use: None Drug Use: None - RESPIRATORY Hx Respiratory Disorders: Yes Hx Asthma: Yes (hx) - CARDIOVASCULAR Hx Cardio Disorders: No Comment:: PFO closure - NEURO Hx Neuro Disorders: Yes Hx Headaches: Yes (for 11 years) Comment:: Increased CSF pressure - GI Hx GI Disorders: No - Hx Genitourinary Disorders: No - ENDOCRINE Hx Endocrine Disorders: No - MUSCULOSKELETAL Hx Musculoskeletal Disorders: No - PSYCH Hx Psych Problems: Yes Hx Anxiety: Yes Hx Depression: Yes - HEMATOLOGY/ONCOLOGY Hx Hematology/Oncology Disorders: Yes Hx Anemia: Yes Hx Cancer: Yes Hx Radiation Therapy: Yes (everyday. Grade 4 glioblastoma.) Hx Blood Transfusions: No Comment:: also b12 deficient Family Medical History Any Significant Family History?: No Family Hx Comment (NOT TO BE USED IN PLACE OF ITEMS BELOW): mom w/thyroid issues ; dad w/headaches Hx Cancer: Mother *Cancer Comment: "mom's side" w/breast CA Physical Exam - General General Appearance: Alert, Oriented x3, Cooperative, No acute distress - Head Head exam: Atraumatic, Normocephalic, Normal inspection - Eye Eye exam: Normal appearance, PERRL - ENT Throat exam: Normal inspection. negative: Tonsillar erythema, Tonsillar exudate - Neck Neck exam: Normal inspection, Full ROM. negative: Tenderness - Respiratory Respiratory exam: Normal lung sounds bilaterally. negative: Respiratory distress - Cardiovascular Cardiovascular Exam: Regular rate, Normal rhythm, Normal heart sounds - GI/Abdominal GI/Abdominal exam: Soft, Normal bowel sounds. negative: Tenderness - Extremities Extremities exam: Normal inspection, Full ROM, Normal capillary refill. negative: Tenderness - Neurological Neurological exam: Abnormal gait (chronic.), Alert, Motor sensory deficit ( There is mild R leg weakness.), Oriented X3. negative: Normal gait Course Vital Signs 10/20/17 17:12 Temperature 97.7 F Pulse Rate 95 H Respiratory 16 Rate Blood Pressure 128/80 Pulse Ox 99 - Reevaluation(s) Reevaluation #1: The patient is doing a little better after returning from CT. Her nausea is improved and she no longer feels like she will vomit. 10/20/17 18:57 Reevaluation #2: The patient's care will be turned over to Dr. Buck at 19:00 due to shift change. 10/20/17 18:58 Medical Decision Making - Data Complexity MDM Data: Labs Ordered and/or Reviewed, X-Ray Ordered and/or Reviewed - Lab Data Result diagrams: 10/20/17 18:15 10/20/17 18:15 - Radiology Data Radiology results: Report reviewed (Head CT: Neg for acute changes. Neg for mass effect, visible tumor or hemorrhage.) Disposition Forms: Patient Portal Access Quality - Quality Measures Quality Measures: Headache (All Ages) - Headache: Neuroimaging Quality Measure: Measure #419: Overuse of Neuroimaging ICD10 Codes Entered: Yes View Detail: Yes Neurological Exam: Patient did NOT have a normal neurological exam. Headache: Use of Neuroimaging: Patient Exclusion, Abnormal Neuro Exam - Blood Pressure Screening View Details: Yes Does Patient Have Any of the Following: No Blood Pressure Classification: Pre-Hypertensive BP Reading Systolic Measurement: 128 Diastolic Measurement: 80 Screening for High Blood Pressure: < Pre-Hypertensive BP, F/U Documented > [ G8950] Pre-Hypertensive Follow-up Interventions: Referral to alternative/primary care provider.
[2017-10-20 18:25] LABS: BASO % 0.9 % (0-6); EOS % 3.3 % (0-6); HEMATOCRIT 41.6 % (35.0-47.0); HEMOGLOBIN 13.3 gm/dl (11.6-16.0); LYMPH % 37.4 % (16-45); MEAN CELL VOLUME 94.8 fl (81-97); MEAN CORPUSCULAR HEMOGLOBIN 30.3 pg (27-33); MEAN PLATELET VOLUME 9.4 fl (7.4-10.4); MONO % 6.4 % (0-9); PLATELET COUNT 412 K/uL (130-400); RED BLOOD COUNT 4.39 M/uL (3.80-5.40); RED CELL DISTRIBUTION WIDTH 13.1 % (11.5-14.5); WHITE BLOOD COUNT W/O DIFF 5.5 K/uL (4.2-12.2)
[2017-10-20] MEDS ORDERED: HYDROMORPHONE HCL 2 MG/ML VIAL IVP ONE ×2 (18:36→20:12)
[2017-10-20 18:39] LABS: BLOOD UREA NITROGEN 13 mg/dL (6-20); CREATININE 0.4 mg/dL (0.5-0.9); EST GLOMERULAR FILTRATION RATE > 60 mL/min
[2017-10-20 18:40] LABS: URINE APPEARANCE CLEAR; URINE BILIRUBIN NEGATIVE (NEGATIVE); URINE BLOOD SMALL (NEGATIVE); URINE COLOR YELLOW; URINE GLUCOSE (UA) NEGATIVE (NEGATIVE); URINE KETONE NEGATIVE (NEGATIVE); URINE LEUKOCYTE ESTERASE NEGATIVE (NEGATIVE); URINE NITRITE NEGATIVE (NEGATIVE); URINE PROTEIN NEGATIVE (NEGATIVE); URINE UROBILINOGEN 0.2 E.U./dL (0.20 - 1.00)
[2017-10-20 18:40] LABS: TOTAL PROTEIN 6.8 g/dL (6.6-8.7)
[2017-10-20 18:42] LABS: GLUCOSE,RANDOM 97 mg/dL (74-109)
[2017-10-20 18:44] LABS: ALB/GLOB RATIO 1.5 (1.1-1.8); ALBUMIN 4.1 g/dL (4.0-5.0); ALKALINE PHOSPHATASE 50 U/L (35-104); ALT/SGPT 14 U/L (<33); AST/SGOT 17 U/L (10.0-35.0)
[2017-10-20 18:51] LABS: URINE CALCIUM OXALATE CRYSTALS FEW /hpf; URINE EPITHELIAL CELLS 0 - 2 (FEW); URINE RBC 0 - 2 (NONE SEEN); URINE WBC 0 - 2 (0-2/hpf)
--- NOTE | 2017-10-20 20:14 | Emergency Department Record ---
History of Present Illness - General Chief complaint: Nausea, Vomiting, Diarrhea Stated complaint: NAUSEA, VOMITING Time Seen by Provider: 10/20/17 17:41 Source: Patient Mode of Arrival: Wheelchair Limitations: No limitations - History of Present Illness MD complaint: Nausea, Vomiting Onset/Timin -: Week(s) Severity scale (1-10): 10 Quality: Constant Improves with: None Worsens with: None Associated Symptoms: Nausea/vomiting - Related Data Home Medications Medication Instructions Recorded Confirmed Last Taken Acetaminophen [Tylenol Extra 500 mg PO Q6H 10/20/17 10/20/17 Unknown Strength] Gabapentin [Neurontin] 400 mg PO TID 10/20/17 10/20/17 Unknown Multivitamin [Daily Multiple 1 each PO DAILY 10/20/17 10/20/17 Unknown Vitamin] Oxycodone HCl [Oxycontin] 10 mg PO Q4H 10/20/17 10/20/17 Unknown Prochlorperazine Maleate 10 mg PO DAILY 10/20/17 10/20/17 Unknown [Compazine] Previous Rx's Medication Instructions Recorded Promethazine HCl [Phenergan] 25 mg RC Q12HR #10 supp.rect 10/20/17 Allergies Allergy/AdvReac Type Severity Reaction Status Date / Time codeine Allergy NAUSEA AND Verified 10/20/17 17:27 VOMITING Latex, Natural Rubber Allergy RASH Verified 10/20/17 17:27 sumatriptan [From Imitrex] Allergy DIFFICULTY Verified 10/20/17 17:27 SWALLOWING sumatriptan succinate Allergy DIFFICULTY Verified 10/20/17 17:27 [From Imitrex] SWALLOWING tramadol Allergy HIVES Verified 10/20/17 17:27 Travel Screening - Travel/Exposure Within Last 30 Days Have you traveled within the last 30 days?: No - Travel/Exposure Within Last Year Have you traveled outside the [place] in the last year?: No - Additonal Travel Details Have you been exposed to anyone with a communicable illness?: No - Travel Symptoms Symptom Screening: None Review of Systems Constitutional: Denies: Chills, Fever, Malaise Eyes: Denies: Eye discharge ENT: Denies: Congestion Respiratory: Denies: Cough, Dyspnea Cardiovascular: Denies: Arrhythmia, Chest pain Endocrine: Reports: Fatigue Gastrointestinal: Reports: Nausea, Vomiting. Denies: Diarrhea Genitourinary: Denies: Dysuria Musculoskeletal: Denies: Back pain Neurological: Reports: Headache (chronic.) Past Medical History - SOCIAL HISTORY Smoking Status: Former smoker Alcohol Use: None Drug Use: None - RESPIRATORY Hx Respiratory Disorders: Yes Hx Asthma: Yes (hx) - CARDIOVASCULAR Hx Cardio Disorders: No Comment:: PFO closure - NEURO Hx Neuro Disorders: Yes Hx Headaches: Yes (for 11 years) Comment:: Increased CSF pressure - GI Hx GI Disorders: No - Hx Genitourinary Disorders: No - ENDOCRINE Hx Endocrine Disorders: No - MUSCULOSKELETAL Hx Musculoskeletal Disorders: No - PSYCH Hx Psych Problems: Yes Hx Anxiety: Yes Hx Depression: Yes - HEMATOLOGY/ONCOLOGY Hx Hematology/Oncology Disorders: Yes Hx Anemia: Yes Hx Cancer: Yes Hx Radiation Therapy: Yes (everyday. Grade 4 glioblastoma.) Hx Blood Transfusions: No Comment:: also b12 deficient Family Medical History Any Significant Family History?: No Family Hx Comment (NOT TO BE USED IN PLACE OF ITEMS BELOW): mom w/thyroid issues ; dad w/headaches Hx Cancer: Mother *Cancer Comment: "mom's side" w/breast CA Physical Exam - General Limitations: No limitations Course Vital Signs 10/20/17 17:12 Temperature 97.7 F Pulse Rate 95 H Respiratory 16 Rate Blood Pressure 128/80 Pulse Ox 99 - Reevaluation(s) Reevaluation #1: 10/20/17 20:35 pt is doing better Medical Decision Making - Lab Data Result diagrams: 10/20/17 18:15 10/20/17 18:15 Lab Results 10/20/17 10/20/17 10/20/17 Range/Units 18:15 18:15 18:20 WBC 5.5 (4.2-12.2) K/uL RBC 4.39 (3.80-5.40) M/uL Hgb 13.3 (11.6-16.0) gm/dl Hct 41.6 (35.0-47.0) % MCV 94.8 (81-97) fl MCH 30.3 (27-33) pg MCHC 32.0 (32-36) g/dl RDW 13.1 (11.5-14.5) % Plt Count 412 H (130-400) K/uL MPV 9.4 (7.4-10.4) fl Gran % 52.0 (47-80) % Lymphocytes % 37.4 (16-45) % Monocytes % 6.4 (0-9) % Eosinophils % 3.3 (0-6) % Basophils % 0.9 (0-6) % Sodium 142 (136-145) mmol/L Potassium 3.5 (3.4-4.5) mmol/L Chloride 103 (98-107) mmol/L Carbon Dioxide 26.0 (22-29) mmol/L Anion Gap 13.0 (7-16) BUN 13 (6-20) mg/dL Creatinine 0.4 L (0.5-0.9) mg/dL Estimated GFR > 60 mL/min Random Glucose 97 (74-109) mg/dL Calcium 9.0 (8.6-10.0) mg/dL Total Bilirubin 0.20 (0.2-1.0) mg/dL AST 17 (10.0-35.0) U/L ALT 14 (<33) U/L Alkaline Phosphatase 50 (35-104) U/L Total Protein 6.8 (6.6-8.7) g/dL Albumin 4.1 (4.0-5.0) g/dL Globulin 2.7 (1.4-4.8) gm/dL Albumin/Globulin Ratio 1.5 (1.1-1.8) Urine Color Yellow Urine Appearance Clear Urine pH 6.0 (5.0-8.0) Ur Specific [place] 1.015 (1.002-1.030) Urine Protein Negative (NEGATIVE) Urine Glucose (UA) Negative (NEGATIVE) Urine Ketones Negative (NEGATIVE) Urine Blood Small H (NEGATIVE) Urine Nitrite Negative (NEGATIVE) Urine Bilirubin Negative (NEGATIVE) Urine Urobilinogen 0.2 (0.20 - 1.00) E.U./dL Ur Leukocyte Esterase Negative (NEGATIVE) Urine RBC 0 - 2 (NONE SEEN) Urine WBC 0 - 2 (0-2/hpf) Ur Epithelial Cells 0 - 2 (FEW) Calcium Oxalate Crystal Few /hpf Disposition Disposition: Discharge Clinical Impression: Head pain Qualifiers: Headache type: unspecified Headache chronicity pattern: chronic headache Intractability: intractable Qualified Code(s): R51 - Headache Vomiting Qualifiers: Vomiting type: unspecified Vomiting Intractability: non-intractable Nausea presence: with nausea Qualified Code(s): R11.2 - Nausea with vomiting, unspecified Disposition: Home, Self-Care Condition: (1) Good Instructions: Acute Nausea and Vomiting (ED) Additional Instructions: [facility]. return sooner if worse Prescriptions: Promethazine HCl [Phenergan] 25 mg RC Q12HR #10 supp.rect Forms: Patient Portal Access Quality - Quality Measures Quality Measures: Headache (All Ages) - Headache: Neuroimaging Quality Measure: Measure #419: Overuse of Neuroimaging ICD10 Codes Entered: Yes Neurological Exam: Patient had a normal neurological exam. [G9535] Headache: Use of Neuroimaging: CTA, CT, MRA or MRI Ordered w/Medical Reason [ G9536] Medical Reason for Exam: Other (recently dxd glioblastoma w bx and radiation) - Blood Pressure Screening Does Patient Have Any of the Following: No Blood Pressure Classification: Pre-Hypertensive BP Reading Systolic Measurement: 128 Diastolic Measurement: 80 Screening for High Blood Pressure: < Pre-Hypertensive BP, F/U Documented > [ G8950] Pre-Hypertensive Follow-up Interventions: Follow-up with rescreen every year.
[2017-10-20] MEDS ORDERED: MORPHINE SULFATE 10 MG/ML VIAL IVP ONE ×2 (20:42→21:49)
[2017-10-20] MEDS ORDERED: KETOROLAC 30 MG/ML VIAL IVP ONE (21:49)
== END 2017-10-20 22:16 | disposition home or self-care (01) ==
LOC: ER 17:02
DX: R51 Headache (principal); R11.2 Nausea with vomiting, unspecified; R19.7 Diarrhea, unspecified; R29.898 Other symptoms and signs involving the musculoskeletal system; R26.89 Other abnormalities of gait and mobility; C71.9 Malignant neoplasm of brain, unspecified; F17.210 Nicotine dependence, cigarettes, uncomplicated
CPT/HCPCS: 70450; 80053; 81001; 85025; 96374; 96375; 96376; 99284; J1200; J1885; J2270; J2765; J7030

== ENCOUNTER 2018-02-11 20:46 | Emergency (ER) | payer MEDICAID ==
--- NOTE | 2018-02-11 21:00 | Emergency Department Record ---
History of Present Illness - General Chief Complaint: Slurred speech Stated Complaint: STROKE LIKE Time Seen by Provider: 02/11/18 20:50 Source: Patient, Family (SO) Mode of Arrival: Wheelchair Limitations: No limitations - History of Present Illness Initial Comments: 42 yo female presents to ED for evaluation of slurred speech which has been present for 2-3 days per patient. Patient states that she asked her Neuro- oncologist (Dr. Jung) at [facility] about her symptoms while at her appointment. SO reports that the patient's symptoms were more pronounced this morning around 9:30, noticed possible right UE weakness and possible facial weakness symptoms this evening approximately 3.5 hours ago (17:30). Per SO, patient was refusing to come to the ED for evaluation. Patient is undergoing treatment for a cerebellar glioma, last received chemo 18 days ago. SO reports increased confusion today as well. Onset/Timin -: Days(s) Location: Altered, Right arm Place: Home Severity: Mild Improves With: None Worsens With: None On Anticoagulants: No Associated Symptoms: Denies other symptoms Treatments Prior to Arrival: None - [place] Coma Scale Eye Response: (4) Open spontaneously Motor Response: (6) Obeys commands Verbal Response: (5) Oriented [place] Total: 15 - Related Data Home Medications: Home Medications Medication Instructions Recorded Confirmed Last Taken Cyclobenzaprine HCl [Flexeril] 10 mg PO DAILY 02/11/18 02/11/18 Unknown Morphine Sulfate 15 mg PO Q4H 02/11/18 02/11/18 Unknown Ondansetron [Zofran Odt] 8 mg PO Q4H 02/11/18 02/11/18 Unknown Temozolomide [Temodar] 230 mg PO DAILY 02/11/18 02/11/18 Unknown Allergies/Adverse Reactions: Allergies Allergy/AdvReac Type Severity Reaction Status Date / Time codeine Allergy NAUSEA AND Verified 10/20/17 17:27 VOMITING Latex, Natural Rubber Allergy RASH Verified 10/20/17 17:27 sumatriptan [From Imitrex] Allergy DIFFICULTY Verified 10/20/17 17:27 SWALLOWING sumatriptan succinate Allergy DIFFICULTY Verified 10/20/17 17:27 [From Imitrex] SWALLOWING tramadol Allergy HIVES Verified 10/20/17 17:27 Review of Systems Constitutional: Denies: Chills, Fever, Malaise, Night sweats Eyes: Denies: Eye discharge, Eye pain ENT: Denies: Congestion, Ear pain, Epistaxis Respiratory: Denies: Cough, Dyspnea Cardiovascular: Denies: Chest pain, Dyspnea on exertion Endocrine: Denies: Fatigue, Heat or cold intolerance Gastrointestinal: Denies: Abdominal pain, Nausea, Vomiting Genitourinary: Denies: Incontinence, Retention Musculoskeletal: Denies: Arthralgia, Back pain Skin: Denies: Bruising, Change in color Neurological: Reports: Confusion, Headache. Denies: Abnormal gait, Numbness, Seizure Psychiatric: Denies: Anxiety Hematological/Lymphatic: Denies: Anemia, Blood Clots Past Medical History - SOCIAL HISTORY Smoking Status: Former smoker Drug Use: None - RESPIRATORY Hx Respiratory Disorders: Yes Hx Asthma: Yes (hx) - CARDIOVASCULAR Hx Cardio Disorders: No Comment:: PFO closure - NEURO Hx Neuro Disorders: Yes Hx Headaches: Yes (for 11 years) Comment:: Increased CSF pressure - GI Hx GI Disorders: No - Hx Genitourinary Disorders: No - ENDOCRINE Hx Endocrine Disorders: No - MUSCULOSKELETAL Hx Musculoskeletal Disorders: No - PSYCH Hx Psych Problems: Yes Hx Anxiety: Yes Hx Depression: Yes - HEMATOLOGY/ONCOLOGY Hx Hematology/Oncology Disorders: Yes Hx Anemia: Yes Hx Cancer: Yes Hx Radiation Therapy: Yes (everyday. Grade 4 glioblastoma.) Hx Blood Transfusions: No Comment:: also b12 deficient Family Medical History Family Hx Comment (NOT TO BE USED IN PLACE OF ITEMS BELOW): mom w/thyroid issues ; dad w/headaches Hx Cancer: Mother *Cancer Comment: "mom's side" w/breast CA Physical Exam - General General Appearance: Alert, Oriented x3, Cooperative, Other (Patient is AOx3, mild slurred speech on examination.) Limitations: No limitations - Head Head exam: Atraumatic, Normocephalic, Normal inspection Head exam detail: negative: Abrasion, Contusion, Haas's sign, General tenderness, Hematoma, Laceration - Eye Eye exam: Normal appearance. negative: Conjunctival injection, Periorbital swelling, Periorbital tenderness, Scleral icterus - ENT Ear exam: negative: Auricular hematoma, Auricular trauma Nasal Exam: negative: Active bleeding, Discharge, Dried blood - Neck Neck exam: Normal inspection. negative: Meningismus, Tenderness - Respiratory Respiratory exam: Normal lung sounds bilaterally. negative: Rales, Respiratory distress, Rhonchi, Stridor - Cardiovascular Cardiovascular Exam: Regular rate, Normal rhythm, Normal heart sounds - GI/Abdominal GI/Abdominal exam: Soft. negative: Rebound, Rigid, Tenderness - Rectal Rectal exam: Deferred - exam: Deferred - Extremities Extremities exam: Normal inspection. negative: Pedal edema, Tenderness - Back Back exam: Denies: CVA tenderness (R), CVA tenderness (L) - Neurological Neurological exam: Alert, Oriented X3, Other (Difficulty with evaluation of CN VII, no clear deficit is elicited on examination.). negative: Motor sensory deficit - Psychiatric Psychiatric exam: Flat affect, Normal mood - Skin Skin exam: Normal color. negative: Abrasion Type of lesion: negative: abrasion Course - Reevaluation(s) Reevaluation #1: 02/11/18 20:[address] for emergent brain imaging at this time. Reevaluation #2: 02/11/18 21:16 Initial laboratory studies were reviewed and are grossly unremarkable for an acute process. Reevaluation #3: 02/11/18 21:19 CT Brain: No acute process Patient and her SO were updated on all results, will initiate transfer to [facility] for neuro-oncologic evaluation. Patient is NOT a tPA candidate based on the patient's history of active treatment for glioma WELL as duration of symptoms. Reevaluation #4: 02/11/18 21:26 Case was discussed with Dr. Levine, will initiate transfer to [facility] at this time for further evaluation. Medical Decision Making - Lab Data Result diagrams: 02/11/18 21:00 02/11/18 21:00 Disposition Disposition: Transfer Clinical Impression: Slurred speech, Malignant glioma of cerebellum Disposition: Acute Care Hospital Transfer Transfer To: [facility] Reason For Transfer: Neuro-oncologic evaluation Accepting Physician: Julianna Time Discussed w/Accepting Physician: 21:26 Condition: (2) Stable Forms: Patient Portal Access Time of Disposition: 21:26 Quality - Quality Measures Quality Measures: N/A - Blood Pressure Screening Does Patient Have Any of the Following: No Blood Pressure Classification: Pre-Hypertensive BP Reading Systolic Measurement: 107 Diastolic Measurement: 82 Screening for High Blood Pressure: < Pre-Hypertensive BP, F/U Documented > [ G8950] Pre-Hypertensive Follow-up Interventions: Referral to alternative/primary care provider.
[2018-02-11 21:01] LABS: BASO % 0.3 % (0-6); EOS % 2.4 % (0-6); GRAN % 74.8 % (47-80); HEMATOCRIT 42.3 % (35.0-47.0); HEMOGLOBIN 13.4 gm/dl (11.6-16.0); LYMPH % 15.5 % (16-45); MEAN CORPUSCULAR HEMOGLOBIN 29.5 pg (27-33); MEAN CORPUSCULAR HGB CONC 31.7 g/dl (32-36); MEAN PLATELET VOLUME 9.4 fl (7.4-10.4); PLATELET COUNT 307 K/uL (130-400); RED BLOOD COUNT 4.55 M/uL (3.80-5.40); RED CELL DISTRIBUTION WIDTH 12.5 % (11.5-14.5); WHITE BLOOD COUNT W/O DIFF 6.6 K/uL (4.2-12.2)
[2018-02-11 21:09] LABS: BLOOD UREA NITROGEN 13 mg/dL (6-20); CREATININE 0.6 mg/dL (0.5-0.9); EST GLOMERULAR FILTRATION RATE > 60 mL/min
[2018-02-11 21:10] LABS: TOTAL PROTEIN 6.6 g/dL (6.6-8.7)
[2018-02-11 21:12] LABS: GLUCOSE,RANDOM 145 mg/dL (74-109)
[2018-02-11 21:15] LABS: ALB/GLOB RATIO 1.3 (1.1-1.8); ALBUMIN 3.7 g/dL (4.0-5.0); ALKALINE PHOSPHATASE 74 U/L (35-104); ALT/SGPT 30 U/L (<33); AST/SGOT 42 U/L (10.0-35.0)
--- NOTE | 2018-02-12 22:06 | CT SCAN REPORT ---
EXAM: CT SCAN HEAD WO CONTRAST HISTORY: SLURRED SPEECH. TECHNIQUE: Sequential axial images were obtained from the foramen magnum to the vertex without contrast administration. FINDINGS: The brain volume is normal. No large territorial infarct, hemorrhage , mass effect, or midline shift. No extraaxial fluid collection. The orbits, paranasal sinuses and mastoid air cells are normal. IMPRESSION: NO ACUTE INTRACRANIAL ABNORMALITY IS APPRECIATED. JOB NUMBER: [id number] MTDD
== END 2018-02-11 21:55 | disposition short-term general hospital (02) ==
LOC: ER 20:46
DX: R47.81 Slurred speech (principal); C71.6 Malignant neoplasm of cerebellum; Z87.891 Personal history of nicotine dependence
CPT/HCPCS: 70450; 80053; 85025; 99285

== ENCOUNTER 2018-04-27 21:52 | Emergency (ER) | payer MEDICAID ==
--- NOTE | 2018-04-27 22:01 | Emergency Department Record ---
History of Present Illness - General Chief Complaint: Altered Mental Status Stated Complaint: ALTERED MENTAL STATE Time Seen by Provider: 04/27/18 21:54 Source: Patient, Family Mode of Arrival: Wheelchair Limitations: Altered mental status - History of Present Illness Initial Comments: 42 yo female presents to ED for evaluation of increased confusion and falls x 2 today. SO reports that the patient restarted chemo 2 weeks ago, was in hospice for some time but "got herself kicked out". Patient also has been taking Eliquis for previous PE diagnosed 3 months ago. SO denies recent fevers, chills , or illness. [facility] MD Complaint: Altered mental status, Confusion Onset/Timin -: Hour(s) Severity: Moderate Consistency: Constant Context: Trauma, History of similar presentation Associated Symptoms: Weakness - [place] Coma Scale Eye Response: (4) Open spontaneously Motor Response: (6) Obeys commands Verbal Response: (4) Confused conversation [place] Total: 14 - Related Data Home Medications Medication Instructions Recorded Confirmed Last Taken Apixaban [Eliquis] 5 mg PO BID 04/27/18 04/27/18 Unknown Methadone HCl 10 mg PO QHS 04/27/18 04/27/18 Unknown Allergies Allergy/AdvReac Type Severity Reaction Status Date / Time codeine Allergy NAUSEA AND Verified 10/20/17 17:27 VOMITING Latex, Natural Rubber Allergy RASH Verified 10/20/17 17:27 sumatriptan [From Imitrex] Allergy DIFFICULTY Verified 10/20/17 17:27 SWALLOWING sumatriptan succinate Allergy DIFFICULTY Verified 10/20/17 17:27 [From Imitrex] SWALLOWING tramadol Allergy HIVES Verified 10/20/17 17:27 Review of Systems ROS unobtainable: Due to mental status Past Medical History - SOCIAL HISTORY Smoking Status: Former smoker - RESPIRATORY Hx Respiratory Disorders: Yes Hx Asthma: Yes (hx) - CARDIOVASCULAR Hx Cardio Disorders: No Comment:: PFO closure - NEURO Hx Neuro Disorders: Yes Hx Headaches: Yes (for 11 years) Comment:: Increased CSF pressure - GI Hx GI Disorders: No - Hx Genitourinary Disorders: No - ENDOCRINE Hx Endocrine Disorders: No - MUSCULOSKELETAL Hx Musculoskeletal Disorders: No - PSYCH Hx Psych Problems: Yes Hx Anxiety: Yes Hx Depression: Yes - HEMATOLOGY/ONCOLOGY Hx Hematology/Oncology Disorders: Yes Hx Anemia: Yes Hx Cancer: Yes Hx Radiation Therapy: Yes (everyday. Grade 4 glioblastoma.) Hx Blood Transfusions: No Comment:: also b12 deficient Family Medical History Any Significant Family History?: Yes Family Hx Comment (NOT TO BE USED IN PLACE OF ITEMS BELOW): mom w/thyroid issues ; dad w/headaches Hx Cancer: Mother *Cancer Comment: "mom's side" w/breast CA Physical Exam - General General Appearance: Alert, Mild distress, Other (AO x 1, is unaware that she is at the hospital, believes the year to be 1927) Limitations: Altered mental status - Head Head exam: Atraumatic, Normocephalic Head exam detail: negative: Abrasion, Contusion, Haas's sign, General tenderness, Hematoma, Laceration - Eye Eye exam: Normal appearance. negative: Conjunctival injection, Periorbital swelling, Periorbital tenderness, Scleral icterus - ENT Ear exam: negative: Auricular hematoma, Auricular trauma Nasal Exam: negative: Active bleeding, Discharge, Dried blood, Foreign body Mouth exam: negative: Drooling, Laceration, Muffled voice, Tongue elevation - Neck Neck exam: Normal inspection. negative: Meningismus, Tenderness - Respiratory Respiratory exam: Normal lung sounds bilaterally. negative: Rales, Respiratory distress, Rhonchi, Stridor - Cardiovascular Cardiovascular Exam: Regular rate, Normal rhythm, Normal heart sounds - GI/Abdominal GI/Abdominal exam: Soft. negative: Rebound, Rigid, Tenderness - Rectal Rectal exam: Deferred - exam: Deferred - Extremities Extremities exam: Normal inspection. negative: Pedal edema, Tenderness - Back Back exam: Denies: CVA tenderness (R), CVA tenderness (L) - Neurological Neurological exam: Alert. negative: Motor sensory deficit - Psychiatric Psychiatric exam: Flat affect - Skin Skin exam: Normal color. negative: Abrasion Type of lesion: negative: abrasion Course - Reevaluation(s) Reevaluation #1: 04/27/18 23:15 CT Brain: No acute process Reevaluation #2: 04/27/18 23:16 Laboratory studies were reviewed and are grossly unremarkable for an acute process. Hgb 11.5 (12 is baseline) UA pending. Reevaluation #3: 04/27/18 23:32 UA was reviewed: 10-15 RBCs 6-10 WBCs few Bacteria 0-2 Epithelial cells Patient and his SO were updated on all results, will initiate transfer to [facility] for further evaluation. Reevaluation #4: 04/27/18 23:47 Case was discussed with Dr. Lunsford, will accept the patient for further evaluation. Will administer Keflex to initiate treatment for possible UTI. Will hold on another IV until arrival as the patient removed her IV her in the ED, will likely remove the IV enroute. Medical Decision Making - Lab Data Result diagrams: 04/27/18 22:30 04/27/18 22:30 Disposition Disposition: Transfer Clinical Impression: Malignant glioma of cerebellum Altered mental status Qualifiers: Altered mental status type: disorientation Qualified Code(s): R41.0 - Disorientation, unspecified Disposition: Acute Care Hospital Transfer Transfer To: [facility] Reason For Transfer: Alteration in mental status, history of active brain lesion Accepting Physician: Isatu Time Discussed w/Accepting Physician: 23:50 Condition: (2) Stable Forms: Patient Portal Access Time of Disposition: 23:50 Quality - Quality Measures Quality Measures: N/A - Blood Pressure Screening Does Patient Have Any of the Following: No Blood Pressure Classification: Pre-Hypertensive BP Reading Systolic Measurement: 113 Diastolic Measurement: 81 Screening for High Blood Pressure: < Pre-Hypertensive BP, F/U Documented > [ G8950] Pre-Hypertensive Follow-up Interventions: Referral to alternative/primary care provider.
[2018-04-27 22:40] LABS: BASO % 0.1 % (0-6); EOS % 0.1 % (0-6); HEMATOCRIT 36.9 % (35.0-47.0); HEMOGLOBIN 11.5 gm/dl (11.6-16.0); LYMPH % 9.4 % (16-45); MEAN CELL VOLUME 95.1 fl (81-97); MEAN CORPUSCULAR HEMOGLOBIN 29.6 pg (27-33); MEAN CORPUSCULAR HGB CONC 31.2 g/dl (32-36); MEAN PLATELET VOLUME 9.2 fl (7.4-10.4); MONO % 4.6 % (0-9); PLATELET COUNT 287 K/uL (130-400); RED BLOOD COUNT 3.88 M/uL (3.80-5.40); RED CELL DISTRIBUTION WIDTH 13.3 % (11.5-14.5)
[2018-04-27 22:50] LABS: BLOOD UREA NITROGEN 21 mg/dL (6-20)
[2018-04-27 22:51] LABS: BILIRUBIN,TOTAL < 0.20 mg/dL (0.2-1.0); CREATININE 0.4 mg/dL (0.5-0.9); EST GLOMERULAR FILTRATION RATE > 60 mL/min; TOTAL PROTEIN 6.1 g/dL (6.6-8.7)
[2018-04-27 22:54] LABS: GLUCOSE,RANDOM 100 mg/dL (74-109)
[2018-04-27 22:56] LABS: ALB/GLOB RATIO 1.4 (1.1-1.8); ALBUMIN 3.6 g/dL (4.0-5.0); ALKALINE PHOSPHATASE 57 U/L (35-104); ALT/SGPT 20 U/L (<33); AMMONIA 31 umol/L (11.0-51.0); AST/SGOT 28 U/L (10.0-35.0)
[2018-04-27 23:02] LABS: PLATELET ESTIMATE NORMAL (NORMAL)
[2018-04-27 23:03] LABS: ANISOCYTOSIS 1+; TOXIC GRANULATION 1+
[2018-04-27 23:20] LABS: URINE APPEARANCE CLEAR; URINE BILIRUBIN NEGATIVE (NEGATIVE); URINE BLOOD MODERATE (NEGATIVE); URINE COLOR YELLOW; URINE GLUCOSE (UA) NEGATIVE (NEGATIVE); URINE KETONE NEGATIVE (NEGATIVE); URINE LEUKOCYTE ESTERASE SMALL (NEGATIVE); URINE NITRITE NEGATIVE (NEGATIVE); URINE PROTEIN TRACE (NEGATIVE)
[2018-04-27 23:27] LABS: URINE BACTERIA FEW; URINE EPITHELIAL CELLS 0 - 2 (FEW)
[2018-04-27] MEDS ORDERED: CEPHALEXIN 500 MG CAPSULE PO STA (23:49)
--- NOTE | 2018-04-30 18:27 | CT SCAN REPORT ---
EXAM: CT SCAN HEAD WO CONTRAST HISTORY: CONFUSION, BRAIN CANCER, ANTICOAGULATION. TECHNIQUE: Axial CT scan of the head performed without IV contrast. COMPARISON: Head CT 02/11/18. FINDINGS: No definite acute intracranial hemorrhage identified. No focal mass effect or midline shift evident. No definite acute infarct or intracranial mass lesion identified. Spina bifida of C1 posteriorly, also present previously, a midline developmental variant. IMPRESSION: 1. NO DEFINITE ACUTE INTRACRANIAL HEMORRHAGE OR FOCAL MASS EFFECT EVIDENT. 2. SPINA BIFIDA OF C1 POSTERIORLY, A MIDLINE DEVELOPMENTAL VARIANT. JOB NUMBER: [id number] [facility]
== END 2018-04-28 00:17 | disposition short-term general hospital (02) ==
LOC: ER 21:52
DX: C71.9 Malignant neoplasm of brain, unspecified (principal); R41.82 Altered mental status, unspecified; Z87.891 Personal history of nicotine dependence; Z86.711 Personal history of pulmonary embolism; Z79.01 Long term (current) use of anticoagulants
CPT/HCPCS: 70450; 80053; 81001; 82140; 85027; 99285

== ENCOUNTER 2018-07-01 16:53 | Emergency (ER) | payer MEDICAID ==
--- NOTE | 2018-07-01 18:21 | Emergency Department Record ---
History of Present Illness - General Chief Complaint: Mental health evaluation Stated Complaint: WANTS A MENTAL EVAL Time Seen by Provider: 07/01/18 18:02 Source: Patient, Family Mode of Arrival: Ambulatory Travel/Exposure to [place] Within 21 Days of Symptoms: No - History of Present Illness Initial Comments: The patient is here with her due to a one to two day hx of increased confusion. She has an inoperable high grade brain tumor and is receiving oral Chemo prescribed from [facility]. 5 days a week. Now for the last day or two she has had increased confusion, increased unsteady gait and intermittent falls. She may have hit her head on the wall yesterday with a fall. The patient denies any new medicines and has had no fever, vomiting, diarrhea, cough or dysuria. The patient also is complaining of an increase in her chronic pain and has recently been changed to Percocet from Lortabs. MD Complaint: Altered mental status Onset/Timin -: Days(s) Associated Psychiatric Symptoms: None Quality: Intermittent Improves With: None Worsens With: None Associated Symptoms: Denies other symptoms Treatments Prior to Arrival: None - [place] Coma Scale Eye Response: (4) Open spontaneously Motor Response: (6) Obeys commands Verbal Response: (5) Oriented [place] Total: 15 - Related Data Home Medications Medication Instructions Recorded Confirmed Last Taken Eszopiclone [Lunesta] 3 mg PO QHS 07/01/18 07/01/18 Unknown Allergies Allergy/AdvReac Type Severity Reaction Status Date / Time codeine Allergy NAUSEA AND Verified 07/01/18 17:35 VOMITING Latex, Natural Rubber Allergy RASH Verified 07/01/18 17:35 sumatriptan [From Imitrex] Allergy DIFFICULTY Verified 07/01/18 17:35 SWALLOWING sumatriptan succinate Allergy DIFFICULTY Verified 07/01/18 17:35 [From Imitrex] SWALLOWING tramadol Allergy HIVES Verified 07/01/18 17:35 Review of Systems Constitutional: Reports: Malaise. Denies: Chills, Fever Eyes: Denies: Eye discharge ENT: Denies: Congestion Respiratory: Denies: Cough Cardiovascular: Denies: Arrhythmia Endocrine: Reports: Fatigue Gastrointestinal: Denies: Nausea Genitourinary: Denies: Dysuria Musculoskeletal: Denies: Arthralgia Skin: Denies: Bruising Past Medical History - SOCIAL HISTORY Smoking Status: Former smoker Alcohol Use: None Drug Use: None - RESPIRATORY Hx Respiratory Disorders: Yes Hx Asthma: Yes (hx) - CARDIOVASCULAR Hx Cardio Disorders: No Comment:: PFO closure - NEURO Hx Neuro Disorders: Yes Hx Headaches: Yes (for 11 years) Comment:: Increased CSF pressure - GI Hx GI Disorders: No - Hx Genitourinary Disorders: No - ENDOCRINE Hx Endocrine Disorders: No - MUSCULOSKELETAL Hx Musculoskeletal Disorders: No - PSYCH Hx Psych Problems: Yes Hx Anxiety: Yes Hx Depression: Yes - HEMATOLOGY/ONCOLOGY Hx Hematology/Oncology Disorders: Yes Hx Anemia: Yes Hx Cancer: Yes Hx Radiation Therapy: Yes (everyday. Grade 4 glioblastoma.) Hx Blood Transfusions: No Comment:: also b12 deficient Family Medical History Any Significant Family History?: Yes Family Hx Comment (NOT TO BE USED IN PLACE OF ITEMS BELOW): mom w/thyroid issues; dad w/headaches Hx Cancer: Mother *Cancer Comment: "mom's side" w/breast CA Physical Exam - General General Appearance: Alert, Oriented x3, Cooperative, No acute distress - Head Head exam: Atraumatic, Normocephalic - Eye Eye exam: Normal appearance, PERRL. negative: Conjunctival injection - ENT Throat exam: Normal inspection. negative: Tonsillar erythema, Tonsillar exudate - Neck Neck exam: Normal inspection, Full ROM. negative: Tenderness - Respiratory Respiratory exam: Normal lung sounds bilaterally. negative: Respiratory distress - Cardiovascular Cardiovascular Exam: Regular rate, Normal rhythm, Normal heart sounds - GI/Abdominal GI/Abdominal exam: Soft, Normal bowel sounds. negative: Tenderness - Extremities Extremities exam: Normal inspection, Full ROM, Normal capillary refill. negative: Tenderness - Neurological Neurological exam: Alert, Normal gait, Oriented X3. negative: Abnormal gait, Altered, Motor sensory deficit - Psychiatric Psychiatric exam: negative: Anxious Course Vital Signs 07/01/18 17:30 Temperature 98.3 F Pulse Rate 74 Respiratory 20 Rate Blood Pressure 89/54 Pulse Ox 100 - Reevaluation(s) Reevaluation #1: The patient is ambulating normally with no ataxia and now is complaining of an increased KIDD. I did discuss the neg head CT with the patient and and did discuss the probable UTI. We will start the patient on Keflex and will refer her to [facility] due to the increased confusion and pain issues. 07/01/18 20:17 Reevaluation #2: Due to the patient's Oncologist working out of [facility] and her scheduled MRI tomorrow I did recommend transfer to the [facility] ER for further evaluation and the patient did agree. I then did discuss the case with Dr. Torres in the ER and he did accept the patient in transfer. 07/01/18 20:37 Medical Decision Making - Data Complexity MDM Data: Labs Ordered and/or Reviewed, X-Ray Ordered and/or Reviewed - Lab Data Result diagrams: 07/01/18 19:40 07/01/18 19:25 - Radiology Data Radiology results: Report reviewed (Head CT: Neg for any acute changes.) Disposition Disposition: Transfer Clinical Impression: Altered mental status Qualifiers: Altered mental status type: unspecified Qualified Code(s): R41.82 - Altered mental status, unspecified Disposition: Acute Care Hospital Transfer Transfer To: [facility]. Reason For Transfer: Oncology. Accepting Physician: Covern Time Discussed w/Accepting Physician: 20:38 Condition: (2) Stable Forms: Patient Portal Access Time of Disposition: 20:38 Quality - Quality Measures Quality Measures: N/A - Blood Pressure Screening View Details: Yes Does Patient Have Any of the Following: No Blood Pressure Classification: Normal BP Reading Systolic Measurement: 89 Diastolic Measurement: 54 Screening for High Blood Pressure: < Normal BP, F/U Not Required > [G8783]
[2018-07-01 19:46] LABS: BLOOD UREA NITROGEN 18 mg/dL (6-20); CREATININE 0.6 mg/dL (0.5-0.9); EST GLOMERULAR FILTRATION RATE > 60 mL/min
[2018-07-01 19:47] LABS: TOTAL PROTEIN 6.1 g/dL (6.6-8.7)
[2018-07-01 19:49] LABS: GLUCOSE,RANDOM 92 mg/dL (74-109)
[2018-07-01 19:52] LABS: ALB/GLOB RATIO 1.3 (1.1-1.8); ALBUMIN 3.5 g/dL (4.0-5.0); ALKALINE PHOSPHATASE 72 U/L (35-104); ALT/SGPT 18 U/L (<33); AST/SGOT 23 U/L (10.0-35.0); C-REACTIVE PROTEIN 0.03 mg/dL (<0.5)
[2018-07-01 19:54] LABS: ABSOLUTE NEUTROPHIL COUNT 2.94; BASO % 1.6 % (0-6); EOS % 5.2 % (0-6); HEMATOCRIT 37.7 % (35.0-47.0); HEMOGLOBIN 11.8 gm/dl (11.6-16.0); LYMPH % 28.3 % (16-45); MEAN CELL VOLUME 91.1 fl (81-97); MEAN CORPUSCULAR HEMOGLOBIN 28.5 pg (27-33); MEAN CORPUSCULAR HGB CONC 31.3 g/dl (32-36); MEAN PLATELET VOLUME 9.9 fl (7.4-10.4); MONO % 7.9 % (0-9); PLATELET COUNT 374 K/uL (130-400); RED BLOOD COUNT 4.14 M/uL (3.80-5.40); RED CELL DISTRIBUTION WIDTH 12.5 % (11.5-14.5); WHITE BLOOD COUNT W/O DIFF 5.2 K/uL (4.2-12.2)
[2018-07-01 19:55] LABS: URINE APPEARANCE SL CLOUDY; URINE BILIRUBIN NEGATIVE (NEGATIVE); URINE BLOOD NEGATIVE (NEGATIVE); URINE COLOR YELLOW; URINE GLUCOSE (UA) NEGATIVE (NEGATIVE); URINE KETONE NEGATIVE (NEGATIVE); URINE LEUKOCYTE ESTERASE SMALL (NEGATIVE); URINE NITRITE POSITIVE (NEGATIVE); URINE PROTEIN NEGATIVE (NEGATIVE); URINE UROBILINOGEN 0.2 E.U./dL (0.20 - 1.00)
[2018-07-01 20:03] LABS: URINE BACTERIA 4+; URINE RBC 0 - 2 (NONE SEEN)
[2018-07-01] MEDS ORDERED: CEPHALEXIN 500 MG CAPSULE PO STA (20:07)
[2018-07-01] MEDS ORDERED: OXYCODONE HCL/APAP 5MG/325MG TABLET PO ONE (20:09)
--- NOTE | 2018-07-04 06:54 | CT SCAN REPORT ---
EXAM: CT OF THE HEAD WITHOUT CONTRAST HISTORY: PAIN. TECHNIQUE: Routine CT images of the head were obtained without contrast. Comparison: 04/17/18. FINDINGS: The ventricles, basal cisterns, and sulci are of normal size, shape and configuration. No midline shift or mass effect. The weaver white differentiation is well maintained throughout both cerebral hemispheres without evidence for acute ischemia. No intracranial mass or hemorrhage. The orbital contents are unremarkable. The paranasal sinuses and mastoid air cells are essentially clear. As previously described there is nonfusion of the posterior arches at C1, a normal congenital variant. IMPRESSION: NO ACUTE INTRACRANIAL ABNORMALITY. JOB NUMBER: [id number] [facility]
== END 2018-07-01 21:44 | disposition short-term general hospital (02) ==
LOC: ER 16:53
DX: R41.82 Altered mental status, unspecified (principal); R26.81 Unsteadiness on feet; R51 Headache; C71.9 Malignant neoplasm of brain, unspecified; Z87.891 Personal history of nicotine dependence; Z91.81 History of falling
CPT/HCPCS: 70450; 80053; 81001; 85025; 86140; 99285

== ENCOUNTER 2018-08-02 23:37 | Observation (INO) | payer MEDICAID ==
--- NOTE | 2018-08-03 00:04 | Emergency Department Record ---
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 Patient reports that she has been taking her Morphine IR, Gabapentin, Valium, and Lunesta 3+ hours ago, reports that she is unable to sleep. Patient reports that she called [facility], was told to come to the ED for evaluation. Patient reports pain radiating from her head, down her back to her hips. Patient reports that she previously received pain relief via morphine pain pump. Patient's and caregiver is currently out of state in [facility]. Complaint: Other Onset/Timin -: Days(s) Location: Other History of Same: Yes Severity scale (1-10): 8 Quality: Other Consistency: Constant Improves with: Other Worsens with: Other Associated Symptoms: Denies other symptoms - Related Data Home Medications Medication Instructions Recorded Confirmed Last Taken Alprazolam [Xanax] 2 mg PO BID 08/02/18 08/02/18 08/02/18 Gabapentin [Neurontin] 100 mg PO TID 08/02/18 08/02/18 08/02/18 Morphine Sulfate 1 tab PO Q4HR PRN 08/02/18 08/02/18 08/02/18 Apixaban [Eliquis] 5 mg PO DAILY 08/03/18 08/03/18 Unknown Dextroamphetamine/Amphetamine 20 mg PO TID 08/03/18 08/03/18 08/02/18 12:00 [Adderall 20 mg Tablet] Allergies Allergy/AdvReac Type Severity Reaction Status Date / Time codeine Allergy NAUSEA AND Verified 07/01/18 17:35 VOMITING Latex, Natural Rubber Allergy RASH Verified 07/01/18 17:35 sumatriptan [From Imitrex] Allergy DIFFICULTY Verified 07/01/18 17:35 SWALLOWING sumatriptan succinate Allergy DIFFICULTY Verified 07/01/18 17:35 [From Imitrex] SWALLOWING tramadol Allergy HIVES Verified 07/01/18 17:35 Travel Screening - Travel/Exposure Within Last 30 Days Have you traveled within the last 30 days?: No - Travel/Exposure Within Last Year Have you traveled outside the [place] in the last year?: No - Additonal Travel Details Have you been exposed to anyone with a communicable illness?: No - Travel Symptoms Symptom Screening: None Review of Systems Constitutional: Denies: Chills, Fever, Malaise, Night sweats Eyes: Denies: Eye discharge, Eye pain ENT: Denies: Congestion, Ear pain, Epistaxis Respiratory: Denies: Cough, Dyspnea Cardiovascular: Denies: Chest pain, Dyspnea on exertion Endocrine: Denies: Fatigue, Heat or cold intolerance Gastrointestinal: Denies: Abdominal pain, Nausea, Vomiting Genitourinary: Denies: Incontinence, Retention Musculoskeletal: Reports: Arthralgia, Back pain Skin: Denies: Bruising, Change in color Neurological: Reports: Headache (For 25 years). Denies: Abnormal gait, Seizure, Tingling Psychiatric: Denies: Anxiety Hematological/Lymphatic: Denies: Anemia, Blood Clots Past Medical History - SOCIAL HISTORY Smoking Status: Former smoker - RESPIRATORY Hx Respiratory Disorders: Yes Hx Asthma: Yes (hx) - CARDIOVASCULAR Hx Cardio Disorders: No Comment:: PFO closure - NEURO Hx Neuro Disorders: Yes Hx Headaches: Yes (for 11 years) Comment:: Increased CSF pressure - GI Hx GI Disorders: No - Hx Genitourinary Disorders: No - ENDOCRINE Hx Endocrine Disorders: No - MUSCULOSKELETAL Hx Musculoskeletal Disorders: No - PSYCH Hx Psych Problems: Yes Hx Anxiety: Yes Hx Depression: Yes - HEMATOLOGY/ONCOLOGY Hx Hematology/Oncology Disorders: Yes Hx Anemia: Yes Hx Cancer: Yes Hx Radiation Therapy: Yes (everyday. Grade 4 glioblastoma.) Hx Blood Transfusions: No Comment:: also b12 deficient Family Medical History Any Significant Family History?: Yes Family Hx Comment (NOT TO BE USED IN PLACE OF ITEMS BELOW): mom w/thyroid issues; dad w/headaches Hx Cancer: Mother *Cancer Comment: "mom's side" w/breast CA Physical Exam - General General Appearance: Alert, Oriented x3, Cooperative, No acute distress Limitations: No limitations - Head Head exam: Atraumatic, Normocephalic, Normal inspection Head exam detail: negative: Abrasion, Contusion, Haas's sign, General tenderness, Hematoma, Laceration - Eye Eye exam: Normal appearance. negative: Conjunctival injection, Periorbital swelling, Periorbital tenderness, Scleral icterus - ENT Ear exam: negative: Auricular hematoma, Auricular trauma Nasal Exam: negative: Active bleeding, Discharge, Dried blood, Foreign body Mouth exam: negative: Drooling, Laceration, Muffled voice, Tongue elevation - Neck Neck exam: Normal inspection. negative: Meningismus, Tenderness - Respiratory Respiratory exam: Normal lung sounds bilaterally. negative: Rales, Respiratory distress, Rhonchi, Stridor - Cardiovascular Cardiovascular Exam: Regular rate, Normal rhythm, Normal heart sounds - GI/Abdominal GI/Abdominal exam: Soft. negative: Rebound, Rigid, Tenderness - Rectal Rectal exam: Deferred - exam: Deferred - Extremities Extremities exam: Normal inspection. negative: Pedal edema, Tenderness - Neurological Neurological exam: Alert, Normal gait, Oriented X3 - Psychiatric Psychiatric exam: Flat affect - Skin Skin exam: Normal color. negative: Abrasion Type of lesion: negative: abrasion Course Vital Signs 08/02/18 23:42 Temperature 97.9 F Pulse Rate [ 88 Pulse Ox Probe] Respiratory 20 Rate Blood Pressure 133/77 [Left Arm] Pulse Ox 100 - Reevaluation(s) Reevaluation #1: 08/03/18 00:10 MAPS was reviewed: OD risk score 830 6/12: Morphine IR 15 mg #120 6/7 Gabapentin #84 6/7 Diazepam 5mg #60 5/25 Methadone 10 mg #60 Patient reports that she has not taken any other medications in 3+ hours. Call placed to [facility] spoke with Cydney who referred me to her Hospice Nurse (Noemi), will have Hospice supervisor rod placing call me back with more information. 08/03/18 00:53 Noemi called back (no call received back), after discussing options to assist the patient, will contact our local Hospice for assistance and possible admission. Reevaluation #2: 08/03/18 00:18 In to updated the patient on the plan at this time for Hospice nurse to return call here to the ED, patient is speaking with her (Dylon). Dylon reports that the patient "fired her palliative care nurse today", and she is in the process of attempting to get the patient into Hospice. At this time, patient is by herself, reports that her daughter "dropped her off" and will return to pick her up. Reevaluation #3: 08/03/18 01:13 Spoke with Carol at [facility], following our discussion, will admit the patient to [facility] and begin referral for Hospice care as the patient's significant other is out of state and the patient's current health care assistant is her 16 yo daughter. Reevaluation #4: 08/03/18 06:53 Case was discussed with Bill Galarza [employer]VEYOR SYSTEM OPERATOR, will accept admission at this time. Disposition Disposition: Admit Clinical Impression: Cerebellar tumor, Admission for hospice care Disposition: Still a Patient at [facility] Decision to Admit: Admit from ER Decision to Admit Date: 08/03/18 Decision to Admit Time: :15 Condition: (2) Stable Time of Disposition: :15 Quality - Quality Measures Quality Measures: N/A - Blood Pressure Screening Does Patient Have Any of the Following: No Blood Pressure Classification: Hypertensive Reading Systolic Measurement: 148 Diastolic Measurement: 95 Screening for High Blood Pressure: < First Hypertensive BP, F/U Documented > [G8950] First Hypertensive Follow-up Interventions: Referral to alternative/primary care provider.
[2018-08-03] MEDS ORDERED: 0.9 % SODIUM CHLORIDE 1000ML 1,000 ML IV PRN ×2 (01:04→03:18)
[2018-08-03] MEDS ORDERED: HYDROMORPHONE HCL 2 MG/ML VIAL IVP ONE (01:04)
[2018-08-03] MEDS ORDERED: ONDANSETRON HCL IV 4 MG/2 ML VIAL IVP PRN (03:18)
[2018-08-03] MEDS: HYDROMORPHONE HCL 2 MG/ML VIAL IVP PRN ×6 (03:23→15:34)
--- NOTE | 2018-08-03 09:42 | History & Physical ---
History of Present Illness - Date of Service Date of Service for History & Physical: 08/03/18 - History of Present Illness Admitting Diagnosis: Cerebellar tumor. Admission for Hospice History of Present Illness: Tatiana Smith is a 42 y.o. F who presented to the [facility] ED on 08/02/18 d/t uncontrolled pain that she states is d/t a malignant neoplasm of the cerebellum. Reports that she had taken her Morphine IR, Gabapentin, Valium and Lunesta and was still unable to sleep. Apparently, she had "fired" her palliative care nurse earlier in the day and then called [facility] when she experience uncontrolled pain from her head, down back to hips. Reported that she wanted to sign on with Hospice but was having difficulties d/t spouse being out of state. Was at home with her 5 children, with the oldest being 16. Pt was admitted to help with hospice consultation. Discussed case with Dr. Liriano, pt's PCP, who stated that this pt has tried to use several hospice companies in the past and things have fallen through. Dr. Liriano also mentioned that the pt has a history of taking controlled medications inappropriately. He recommended d/c home and a f/u with her Oncologist. Contacted Dr. Bartlett at [facility], who stated that this pt has non-tumor related symptoms and has been battling a mood disorder. She reported that the pt has a high-grade glioblastoma for which she received palliative (there is no curative tx) chemo/radiation. There was regression of the tumor, but the pt did not complete chemo d/t the side effects. Dr. Bartlett then stated the pt enrolled into hospice in March but then discharged herself because she thought she was doing "pretty good". In between March and the end of June, the Onc stated that she was able to get the pt into the [place] [facility] for pain management as she told the pt she would not manage pain. She stated that she is unsure as to whether the pt continued being seen in the clinic or not. Dr. Bartlett did state that the tumor is stable for now, but that it is a high- grade glioblastoma for which there is no curative treatment AND the pt is not undergoing palliative chemo/radiation. She reported that she cannot predict exactly what life expectancy is but that anywhere from 1-6 months is reasonable. 08/03/18 1200 Sitting up in bed, A&Ox3, eating lunch. States that she would like to be signed up with [facility] because they are a national company and it would make the transition for when she moves to [place] in 8 weeks easier. Is willing to utilize another hospice company should [facility] not accept. Travel Screening - Travel/Exposure Within Last 30 Days Have you traveled within the last 30 days?: No Location Detail:: [place] - Travel/Exposure Within Last Year Have you traveled outside the [place] in the last year?: No - Additonal Travel Details Have you been exposed to anyone with a communicable illness?: No - Travel Symptoms Symptom Screening: None Review of Systems Constitutional: Denies: Chills, Fever, Malaise, Night sweats Eyes: Denies: Eye discharge, Eye pain ENT: Denies: Congestion, Ear pain, Epistaxis Respiratory: Denies: Cough, Dyspnea Cardiovascular: Denies: Chest pain, Dyspnea on exertion Endocrine: Denies: Fatigue, Heat or cold intolerance Gastrointestinal: Denies: Abdominal pain, Nausea, Vomiting Genitourinary: Denies: Incontinence, Retention Musculoskeletal: Reports: Arthralgia, Back pain Skin: Denies: Bruising, Change in color Neurological: Reports: Headache (For 25 years). Denies: Abnormal gait, Seizure, Tingling Psychiatric: Denies: Anxiety Hematological/Lymphatic: Denies: Anemia, Blood Clots Past Medical History - SOCIAL HISTORY Smoking Status: Former smoker - RESPIRATORY Hx Respiratory Disorders: Yes Hx Asthma: Yes (hx) - CARDIOVASCULAR Hx Cardio Disorders: No Comment:: PFO closure - NEURO Hx Neuro Disorders: Yes Hx Headaches: Yes (for 11 years) Comment:: Increased CSF pressure - GI Hx GI Disorders: No - Hx Genitourinary Disorders: No - ENDOCRINE Hx Endocrine Disorders: No - MUSCULOSKELETAL Hx Musculoskeletal Disorders: No - PSYCH Hx Psych Problems: Yes Hx Anxiety: Yes Hx Depression: Yes - HEMATOLOGY/ONCOLOGY Hx Hematology/Oncology Disorders: Yes Hx Anemia: Yes Hx Cancer: Yes Hx Radiation Therapy: Yes (everyday. Grade 4 glioblastoma.) Hx Blood Transfusions: No Comment:: also b12 deficient Family Medical History Any Significant Family History?: Yes Family Hx Comment (NOT TO BE USED IN PLACE OF ITEMS BELOW): mom w/thyroid issues; dad w/headaches Hx Cancer: Mother *Cancer Comment: "mom's side" w/breast CA H&P Meds/Allergies - Allergies Allergies: Allergies Allergy/AdvReac Type Severity Reaction Status Date / Time codeine Allergy NAUSEA AND Verified 07/01/18 17:35 VOMITING Latex, Natural Rubber Allergy RASH Verified 07/01/18 17:35 sumatriptan [From Imitrex] Allergy DIFFICULTY Verified 07/01/18 17:35 SWALLOWING sumatriptan succinate Allergy DIFFICULTY Verified 07/01/18 17:35 [From Imitrex] SWALLOWING tramadol Allergy HIVES Verified 07/01/18 17:35 - Home Medications Home Medications Medication Instructions Recorded Confirmed Last Taken Alprazolam [Xanax] 2 mg PO BID 08/02/18 08/02/18 08/02/18 Gabapentin [Neurontin] 100 mg PO TID 08/02/18 08/02/18 08/02/18 Morphine Sulfate 1 tab PO Q4HR PRN 08/02/18 08/02/18 08/02/18 Apixaban [Eliquis] 5 mg PO DAILY 08/03/18 08/03/18 Unknown Dextroamphetamine/Amphetamine 20 mg PO TID 08/03/18 08/03/18 08/02/18 12:00 [Adderall 20 mg Tablet] - Active Medications Active Medications: Current Medications Hydromorphone HCl (Dilaudid) 1 mg IVP Q4H PRN PRN Reason: PAIN - MOD TO SEVERE (5-10) Last Admin: 08/03/18 07:32 Dose: 1 mg Documented by: Sodium Chloride () 1,000 mls @ 100 mls/hr IV .Q10H PRN PRN Reason: LARGE VOLUME IV Last Admin: 08/03/18 01:21 Dose: 100 mls/hr Documented by: Sodium Chloride () 1,000 mls @ 100 mls/hr IV .Q10H PRN PRN Reason: LARGE VOLUME IV Ondansetron HCl (Zofran) 4 mg IVP Q6H PRN PRN Reason: NAUSEA Physical Exam - Vital Signs Vital Signs: Vital Signs - Last 24 Hrs Temp Pulse Resp BP Pulse Ox 08/03/18 07:15 97.2 F L 104 H 17 118/77 99 08/03/18 03:36 16 08/03/18 02:00 97.9 F 91 H 18 148/95 97 08/03/18 01:25 89 132/94 99 08/02/18 23:42 97.9 F 88 20 133/77 100 - General General Appearance: Alert, Oriented x3, Cooperative, No acute distress Limitations: No limitations - Head Head exam: Atraumatic, Normocephalic, Normal inspection Head exam detail: negative: Abrasion, Contusion, Haas's sign, General tenderness, Hematoma, Laceration - Eye Eye exam: Normal appearance. negative: Conjunctival injection, Periorbital sw elling, Periorbital tenderness, Scleral icterus - ENT Ear exam: negative: Auricular hematoma, Auricular trauma Nasal Exam: negative: Active bleeding, Discharge, Dried blood, Foreign body Mouth exam: negative: Drooling, Laceration, Muffled voice, Tongue elevation - Neck Neck exam: Normal inspection. negative: Meningismus, Tenderness - Respiratory Respiratory exam: negative: Accessory muscle use, Rales, Respiratory distress, Rhonchi, Stridor - GI/Abdominal GI/Abdominal exam: Soft. negative: Rebound, Rigid, Tenderness - Rectal Rectal exam: Deferred - exam: Deferred - Extremities Extremities exam: Normal inspection. negative: Pedal edema, Tenderness - Neurological Neurological exam: Alert, Normal gait, Oriented X3 - Psychiatric Psychiatric exam: Flat affect - Skin Skin exam: Normal color. negative: Abrasion Type of lesion: negative: abrasion VTE H&P Assessment - Risk for VTE Risk for VTE: Yes Risk Level: Low Risk Assessment Date: 08/03/18 Risk Assessment Time: 12:10 VTE Orders Placed or Will Be Placed: No VTE Reason for No Prophylaxis: Contraindicated Plan - Detailed Diagnosis and Plan (1) Uncontrolled pain Status: Acute Base Code: R52 - PAIN, UNSPECIFIED Comment: 08/03/18 -Unclear on home medications after discussing case with PCP Dr. Liriano -Social Work setting pt up with hospice upon discharge so that pain management can be continued. -Will continue IV Dilaudid 1mg with frequency change from q. 4H Prn to q. 2H PRN (2) Admission for hospice care Status: Acute Base Code: Z51.5 - ENCOUNTER FOR PALLIATIVE CARE Comment: 08/03/18 -Discussed case with pt Oncologist Dr. Hu from [facility] -High Grade Glioblastoma with no curative treatment -Social Work/Case Management working with hospice to get pt signed on to services (3) Comfort measures only status Status: Acute Base Code: Z51.5 - ENCOUNTER FOR PALLIATIVE CARE Comment: 08/03/18 -Signing on to hospice d/t high grade glioblastoma
[2018-08-03] MEDS ORDERED: DIAZEPAM 5 MG TABLET PO PRN (09:45)
--- NOTE | 2018-08-03 12:54 | Discharge Summary ---
Providers Discharge Summary Date: 08/03/18 Date of admission: 08/03/18 01:45 Attending physician: GHADA STOCK Consults: Consult Orders 08/03/18 03:18 Consult NOW Consulting Provider: [facility] Physician Instructions: Hospice consultation Reason For Exam: Hospice Physical Exam - Vital Signs Vital Signs: Vital Signs - Last 24 Hrs Temp Pulse Resp BP Pulse Ox 08/03/18 07:15 97.2 F L 104 H 17 118/77 99 08/03/18 03:36 16 08/03/18 02:00 97.9 F 91 H 18 148/95 97 08/03/18 01:25 89 132/94 99 08/02/18 23:42 97.9 F 88 20 133/77 100 - General General Appearance: Alert, Oriented x3, Cooperative, No acute distress Limitations: No limitations - Head Head exam: Atraumatic, Normocephalic, Normal inspection Head exam detail: negative: Abrasion, Contusion, Haas's sign, General tenderness, Hematoma, Laceration - Eye Eye exam: Normal appearance. negative: Conjunctival injection, Periorbital swelling, Periorbital tenderness, Scleral icterus - ENT Ear exam: negative: Auricular hematoma, Auricular trauma Nasal Exam: negative: Active bleeding, Discharge, Dried blood, Foreign body Mouth exam: negative: Drooling, Laceration, Muffled voice, Tongue elevation - Neck Neck exam: Normal inspection. negative: Meningismus, Tenderness - Respiratory Respiratory exam: negative: Accessory muscle use, Rales, Respiratory distress, Rhonchi, Stridor - GI/Abdominal GI/Abdominal exam: Soft. negative: Rebound, Rigid, Tenderness - Rectal Rectal exam: Deferred - exam: Deferred - Extremities Extremities exam: Normal inspection. negative: Pedal edema, Tenderness - Neurological Neurological exam: Alert, Normal gait, Oriented X3 - Psychiatric Psychiatric exam: Flat affect - Skin Skin exam: Normal color. negative: Abrasion Type of lesion: negative: abrasion Hospitalization - Hospitalization Admission Diagnosis: Cerebellar tumor. Admission for Hospice - Problem List/Discharge Diagnosis (1) Uncontrolled pain Status: Acute Base Code: R52 - PAIN, UNSPECIFIED Comment: 08/03/18 -Unclear on home medications after discussing case with PCP Dr. Liriano -Social Work setting pt up with hospice upon discharge so that pain management can be continued. -Will continue IV Dilaudid 1mg with frequency change from q. 4H Prn to q. 2H PRN (2) DVT prophylaxis Status: Acute Base Code: Z29.9 - ENCOUNTER FOR PROPHYLACTIC MEASURES, UNSPECIFIED (3) Admission for hospice care Status: Acute Base Code: Z51.5 - ENCOUNTER FOR PALLIATIVE CARE Comment: 08/03/18 -Discussed case with pt Oncologist Dr. Hu from [facility] -High Grade Glioblastoma with no curative treatment -Social Work/Case Management working with hospice to get pt signed on to services (4) Comfort measures only status Status: Acute Base Code: Z51.5 - ENCOUNTER FOR PALLIATIVE CARE Comment: 08/03/18 -Signing on to hospice d/t high grade glioblastoma - Hospitalization Course Disposition: Hospice care; pt to live @home Hospital Course: Tatiana Smith is a 42 y.o. F who presented to the [facility] ED on 08/02/18 d/t uncontrolled pain that she states is d/t a malignant neoplasm of the cerebellum. Reports that she had taken her Morphine IR, Gabapentin, Valium and Lunesta and was still unable to sleep. Apparently, she had "fired" her palliative care nurse earlier in the day and then called [facility] when she experience uncontrolled pain from her head, down back to hips. Reported that she wanted to sign on with Hospice but was having difficulties d/t spouse being out of state. Was at home with her 5 children, with the oldest being 16. Pt was admitted to help with hospice consultation. Discussed case with Dr. Liriano, pt's PCP, who stated that this pt has tried to use several hospice companies in the past and things have fallen through. Dr. Liriano also mentioned that the pt has a history of taking controlled medications inappropriately. He recommended d/c home and a f/u with her Oncologist. Contacted Dr. Bartlett at [facility], who stated that this pt has non-tumor related symptoms and has been battling a mood disorder. She reported that the pt has a high-grade glioblastoma for which she received palliative (there is no curative tx) chemo/radiation. There was regression of the tumor, bu t the pt did not complete chemo d/t the side effects. Dr. Bartlett then stated the pt enrolled into hospice in March but then discharged herself because she thought she was doing "pretty good". In between March and the end of June, the Onc stated that she was able to get the pt into the [place] [facility] clinic for pain management as she told the pt she would not manage pain. She stated that she is unsure as to whether the pt continued being seen in the clinic or not. Dr. Bartlett did state that the tumor is stable for now, but that it is a high- grade glioblastoma for which there is no curative treatment AND the pt is not undergoing palliative chemo/radiation. She reported that she cannot predict exactly what life expectancy is but that anywhere from 1-6 months is reasonable. 08/03/18 1200 Sitting up in bed, A&Ox3, eating lunch. States that she would like to be signed up with [facility] because they are a [employer] company and it would make the transition for when she moves to [place] in 8 weeks easier. Is willing to utilize another hospice company should [facility] not accept. Social Work/Case Management working with pt to get set up with home hospice. Condition at Discharge: (2) Stable Discharge Medications - Discharge Medications Home Medications: Ambulatory Orders Diazepam [Valium] 10 mg PO TID 07/28/17 [Last Taken 08/02/18] Eszopiclone [Lunesta] 3 mg PO QHS 07/01/18 [Last Taken 08/02/18] Alprazolam [Xanax] 2 mg PO BID 08/02/18 [Last Taken 08/02/18] Gabapentin [Neurontin] 100 mg PO TID 08/02/18 [Last Taken 08/02/18] Morphine Sulfate 1 tab PO Q4HR PRN 08/02/18 [Last Taken 08/02/18] Apixaban [Eliquis] 5 mg PO DAILY 08/03/18 [Last Taken Unknown] Dextroamphetamine/Amphetamine [Adderall 20 mg Tablet] 20 mg PO TID 08/03/18 [Last Taken 08/02/18 12:00] Discharge Plan - Discharge Instructions Activity at Discharge: Increase Activity as Tolerated Diet at Discharge: Advance to Usual Diet Instructions: Hydromorphone (By injection), Non-pharmacological Pain Management Therapies for Adults (GEN), Hospice Care (GEN), Pharmacological Management of Cancer Pain (DC), Nonpharmacological Management of Cancer Pain (DC), Local Infusion Pain Management Pump (DC), Fall Prevention (DC), Brain Tumors (DC) Additional Instructions: [facility] will see you at home between 5:30-6:00PM to start hospice services in your home. Quality Measures - Quality Measures Quality Measures: Documentation of Current Medications in Medical Record, Screening for High Blood Pressure and F/U Documented - Current Medications Quality Measure: Measure #130: Documentation of Current Medications Documentation of Current Medications: <Current Medications Documented/Reviewed> [G8427] - Blood Pressure Screening Quality Measure: Screening for High Blood Pressure and Follow-Up Documented Does Patient Have Any of the Following: No Blood Pressure Classification: Hypertensive Reading Systolic Measurement: 131 Diastolic Measurement: 97 Screening for High Blood Pressure: < Normal BP, F/U Not Required > [G8783] - Elder Abuse Suspicion Index EASI Reference Information: Suze GODDARD, Ciara C, Amelia D, Tiera Faria.Development and validation of a tool to assist physicians identification of elder abuse: The Elder Abuse Suspicion Index (EASI ). Journal of Elder Abuse and Neglect, 2008; 20 (3): 276-300.
== END 2018-08-03 16:11 | disposition hospice, home (50) ==
LOC: ER 23:37 → MEDSURG 08-03 01:45
PROVIDERS: ADMIT Internal Medicine; ATTEND Internal Medicine
DX: G89.3 Neoplasm related pain (acute) (chronic) (principal); C71.9 Malignant neoplasm of brain, unspecified; Z51.5 Encounter for palliative care; F41.8 Other specified anxiety disorders; D64.9 Anemia, unspecified; E53.8 Deficiency of other specified B group vitamins; Z87.891 Personal history of nicotine dependence; Z66 Do not resuscitate
CPT/HCPCS: 96374; 99236; 99285